=== PATIENT | male | born 1960 | race Caucasian/White ===

== ENCOUNTER 2017-02-04 08:24 | Emergency (ER) | payer MEDICARE, MEDICAID ==
[~2017-02-04] VITALS: Ht 170.2 cm; Wt 72.6 kg
[~2017-02-04 08:24] MED LIST: ACET325T9 PO; ASCO500T3 PO; CEFP200T PO; CLON0.5T3 PO; DIVA500T2 PO; DOCU-27 PO; ESCI10TA10 PO; IBUP-1027 PO; KETO15CR TP; LORA-434 PO; MAGN400O4 PO; MINE120C TP; MULT-245 PO; OXYB5TAB33 PO; POTA20LI PO; QUET50TA5 PO; RISP3TAB23 PO; TRAM50TA PO; [UNRECOGNIZED DRUG - OTHER] TP
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
[2017-02-04] MEDS ORDERED: ACETAMINOPHEN 325 MG TABLET. PO ONE (09:00)
[2017-02-04 11:22] VITALS: BP 130/82
== END 2017-02-04 11:27 | disposition home or self-care (01) ==
LOC: ER 08:24
DX: S09.90XA Unspecified injury of head, initial encounter (principal); F20.9 Schizophrenia, unspecified; K21.9 Gastro-esophageal reflux disease without esophagitis; F17.210 Nicotine dependence, cigarettes, uncomplicated; M19.90 Unspecified osteoarthritis, unspecified site; Z86.73 Personal history of transient ischemic attack (TIA), and cerebral infarction without residual deficits; Z98.2 Presence of cerebrospinal fluid drainage device; Y08.09XA Assault by strike by other specified type of sport equipment, initial encounter; Y93.89 Activity, other specified; Y99.8 Other external cause status; Y92.89 Other specified places as the place of occurrence of the external cause
CPT/HCPCS: 99284

== ENCOUNTER 2019-01-10 14:51 | Inpatient (IN) | payer MEDICARE, MEDICAID ==
[~2019-01-10] VITALS: Ht 170.2 cm; Wt 73.6 kg
[~2019-01-10 14:51] MED LIST changes: +AMOX1TAB11 PO; +CLON0.5T11 PO; -CLON0.5T3 PO; +DOCU-109 PO; -DOCU-27 PO; -ESCI10TA10 PO; +GABA-585 PO; -KETO15CR TP; +KETO15CR2 TP; +LACT1CAP19 PO; +LEXAPRO10 MG PO; -MAGN400O4 PO; +MAGN400O7 PO; +METF10007 PO; +OMEP40CA5 PO; -POTA20LI PO; +POTA20LI27 PO; +RISP1TAB43 PO; +VALP250S PO; +VALP250S4 FT
--- NOTE | 2019-01-10 15:07 | PHYS DOC ---
Past Medical History Past Medical History: Anxiety, Arthritis, CVA, GERD, Seizure, Schizophrenia, UTI, Other Additional Past Medical Histor: L SIDE HEMIPLEGIA,FALLS,candidal stomatitis, hydrocephalus Past Surgical History: Cholecystectomy, Other Additional Past Surgical Histo: PEG TUBE PLACEMENT, MUFFLER HAND shunt Alcohol Use: None Drug Use: None Adult General HPI HPI Patient is a 58 year old altered mental status. Patient has a decreased level of awareness at baseline however this is become worse over the past 10 days or so at the assisted care facility where he resides. He was recently diagnosed with urinary tract infection, was placed on Cipro and was initially improving however it his again gotten worse over the past several days. He was also noted to be hypokalemic and received IV fluids with potassium without any improvement in his mental status. History is limited from the patient due to his altered mental status. History was obtained from the paramedics and the assisted care facility where he resides[] Review of Systems Review of Systems Unable to obtain from patient due to altered mental status All other systems were reviewed and found to be within normal limits, except as documented in this note. Current Medications Current Medications Current Medications Medications (Trade) Dose Ordered Sig/Quinn Start Time Stop Time Status Last Admin Dose Admin Sodium Chloride 1,000 ml @ 1,000 mls/hr 1X ONCE 01/10/19 15:15 01/10/19 16:14 DC 01/10/19 15:36 1,000 MLS/HR Allergies Allergies Allergies Coded Allergies Type Severity Reaction Last Updated Verified egg Allergy Intermediate Diarrhea 09/27/18 Yes Physical Exam Physical Exam Constitutional: Well developed, well nourished, ill appearing. [] HENT: Normocephalic, atraumatic, bilateral external ears normal, oropharynx moist, no oral exudates, nose normal. [] Eyes: PERRLA, EOMI, conjunctiva normal, no discharge. [] Neck: Normal range of motion, no tenderness, supple, no stridor. [] Cardiovascular:Heart rate regular rhythm, no murmur [] Lungs & Thorax: Bilateral breath sounds clear to auscultation [] Abdomen: Bowel sounds normal, soft, no tenderness, no masses, no pulsatile masses. [] Skin: Warm, dry, no erythema, no rash. [] Back: No tenderness, no CVA tenderness. [] Extremities: No tenderness, no cyanosis, no clubbing, ROM intact, no edema. [] Neurologic: Alert, will follow commands, normal motor function, no focal deficits noted. [] Psychologic: Unable to assess. [] Current Patient Data Vital Signs Vital Signs Date Time Temp Pulse Resp B/P (MAP) Pulse Ox O2 Delivery O2 Flow Rate FiO2 01/10/19 17:00 68 16 99 01/10/19 14:51 99.6 118/76 (90) Nasal Cannula 2.0 99.6 Lab Values Laboratory Tests Test 01/10/19 15:04 01/10/19 15:45 White Blood Count 7.9 x10^3/uL (4.0-11.0) Red Blood Count 4.97 x10^6/uL (4.30-5.70) Hemoglobin 14.9 g/dL (13.0-17.5) Hematocrit 45.5 % (39.0-53.0) Mean Corpuscular Volume 92 fL (79-100) Mean Corpuscular Hemoglobin 30 pg (25-35) Mean Corpuscular Hemoglobin Concent 33 g/dL (31-37) Red Cell Distribution Width 14.9 % (11.5-14.5) H Platelet Count 206 x10^3/uL (140-400) Neutrophils (%) (Auto) 59 % (31-73) Lymphocytes (%) (Auto) 28 % (24-48) Monocytes (%) (Auto) 13 % (0-9) H Eosinophils (%) (Auto) 0 % (0-3) Basophils (%) (Auto) 0 % (0-3) Neutrophils # (Auto) 4.7 x10^3uL (1.8-7.7) Lymphocytes # (Auto) 2.2 x10^3/uL (1.0-4.8) Monocytes # (Auto) 1.0 x10^3/uL (0.0-1.1) Eosinophils # (Auto) 0.0 x10^3/uL (0.0-0.7) Basophils # (Auto) 0.0 x10^3/uL (0.0-0.2) Prothrombin Time 16.9 SEC (11.7-14.0) H Prothrombin Time INR 1.4 (0.8-1.1) H Urine Collection Type Unknown Urine Color Yellow Urine Clarity Clear Urine pH 8.0 Urine Specific [place] >=1.030 Urine Protein 30 mg/dL (NEG-TRACE) Urine Glucose (UA) Negative mg/dL (NEG) Urine Ketones (Stick) 15 mg/dL (NEG) Urine Blood Negative (NEG) Urine Nitrite Negative (NEG) Urine Bilirubin Negative (NEG) Urine Urobilinogen Dipstick 1.0 mg/dL (0.2 mg/dL) Urine Leukocyte Esterase Negative (NEG) Urine RBC Occ /HPF (0-2) Urine WBC 0 /HPF (0-4) Urine Squamous Epithelial Cells Few /LPF Urine Bacteria 0 /HPF (0-FEW) Urine Mucus Marked /LPF Sodium Level 140 mmol/L (136-145) Potassium Level 5.2 mmol/L (3.5-5.1) H Chloride Level 104 mmol/L (98-107) Carbon Dioxide Level 27 mmol/L (21-32) Anion Gap 9 (6-14) Blood Urea Nitrogen 22 mg/dL (8-26) Creatinine 0.5 mg/dL (0.7-1.3) L Estimated GFR (Cockcroft-Gault) 172.0 BUN/Creatinine Ratio 44 (6-20) H Glucose Level 116 mg/dL (70-99) H Calcium Level 9.1 mg/dL (8.5-10.1) Magnesium Level 1.7 mg/dL (1.8-2.4) L Total Bilirubin 0.3 mg/dL (0.2-1.0) Aspartate Amino Transferase (AST) 19 U/L (15-37) Alanine Aminotransferase (ALT) 11 U/L (16-63) L Alkaline Phosphatase 68 U/L (46-116) Troponin I Quantitative < 0.017 ng/mL (0.000-0.055) ID-Boc-A-Type Natriuretic Peptide 33 pg/mL (0-124) Total Protein 6.8 g/dL (6.4-8.2) Albumin 2.2 g/dL (3.4-5.0) L Albumin/Globulin Ratio 0.5 (1.0-1.7) L Thyroid Stimulating Hormone (TSH) 4.904 uIU/mL (0.358-3.74) H Ammonia 23 mcmol/L (11-34) Laboratory Tests 01/10/19 15:04 Laboratory Tests 01/10/19 15:04 EKG EKG EKG shows a sinus rhythm at 65 bpm, normal axis, QTC of 388 ms, no ST elevation , interpreted by me at 1805[] Radiology/Procedures Radiology/Procedures Examination: CT HEAD WO CONTRAST History: ams; pt's neck is frozen at an angle; best position I could get pt into Comparison/Correlation: 10/11/2015 CT head without contrast Findings: Axial images of the head were obtained without contrast. Shunt catheter tubing involving the right lateral ventricular body is present. Left sided shunt catheter tubing terminating at the left lateral ventricular body is also present. Mild hydrocephalus is present and this is greater than compared to the previous exam. No intracranial hemorrhage, then shift, or mass effect. Focal ectasia of the right lateral ventricle anteriorly is noted and somewhat more evident than on the prior exam. Opacification of the right maxillary sinus is noted with fluid level present. Impression: Mild right and left lateral hydrocephalus is present. This is mildly increased compared to the prior exam. No intracranial hemorrhage. Acute right maxillary sinusitis. Chest x-ray does not show any acute features[] Course & Med Decision Making Course & Med Decision Making Pertinent Labs and Imaging studies reviewed. (See chart for details) ED course: Patient arrived by EMS, was placed in bed, and tolerated exam well. [facility]. After the return of laboratory and imaging findings consultation was made with the hospitalist service for admission, further evaluation, and treatment. Medical decision making: There is no evidence of an acute stroke syndrome, no evidence of pneumonia on chest x-ray, no evidence of sepsis on exam or laboratory criteria. No evidence of hyperammonemia. No evidence of a urinary tract infection.[] Dragon Disclaimer Dragon Disclaimer This electronic medical record was generated, in whole or in part, using a voice recognition dictation system. Departure Departure Impression: Primary Impression: Altered mental status Disposition: 09 ADMITTED INPATIENT Admitting Physician: Other Condition: IMPROVED Referrals: PABLITO GONZALEZ (PCP) Problem Qualifiers Primary Impression: Altered mental status Altered mental status type: unspecified Qualified Codes: R41.82 - Altered mental status, unspecified ALLY SOUZA Jan 10, 2019 15:07
[2019-01-10] MEDS ORDERED: IV NORMAL SALINE 1000ML BAG 1,000 ML IV ONE (15:15)
[2019-01-10 15:17] LABS: BASO % 0 % (0-3); EOS % 0 % (0-3); HEMATOCRIT 45.5 % (39.0-53.0); HEMOGLOBIN 14.9 g/dL (13.0-17.5); LYMPH # 2.2 x10^3/uL (1.0-4.8); LYMPH % 28 % (24-48); MEAN CORPUSCULAR HEMOGLOBIN 30 pg (25-35); MEAN CORPUSCULAR HGB CONC 33 g/dL (31-37); MEAN CORPUSCULAR VOLUME 92 fL (79-100); MONO % 13 % (0-9); NEUT # 4.7 x10^3uL (1.8-7.7); NEUT % 59 % (31-73); PLATELET COUNT 206 x10^3/uL (140-400); RED BLOOD COUNT 4.97 x10^6/uL (4.30-5.70); RED CELL DISTRIBUTION WIDTH 14.9 % (11.5-14.5); WHITE BLOOD COUNT 7.9 x10^3/uL (4.0-11.0)
[2019-01-10 15:25] LABS: BILIRUBIN,URINE NEGATIVE (NEG); CLARITY,URINE CLEAR; COLOR,URINE YELLOW; NITRITE,URINE NEGATIVE (NEG); PROTEIN,URINE 30 mg/dL (NEG-TRACE)
[2019-01-10 15:27] LABS: PROTHROMBIN TIME PATIENT 16.9 SEC (11.7-14.0)
[2019-01-10 15:34] LABS: BACTERIA,URINE 0 /HPF (0-FEW); CALCIUM 9.1 mg/dL (8.5-10.1); CREATININE 0.5 mg/dL (0.7-1.3); POTASSIUM 5.2 mmol/L (3.5-5.1); RBC,URINE OCC /HPF (0-2); SQUAMOUS EPITHELIAL CELL,UR FEW /LPF; WBC,URINE 0 /HPF (0-4)
[2019-01-10 15:39] LABS: ALBUMIN 2.2 g/dL (3.4-5.0); ALBUMIN/GLOBULIN RATIO 0.5 (1.0-1.7); MAGNESIUM 1.7 mg/dL (1.8-2.4); TOTAL BILIRUBIN 0.3 mg/dL (0.2-1.0); TOTAL PROTEIN 6.8 g/dL (6.4-8.2)
--- NOTE | 2019-01-10 15:57 | RAD ---
Examination: CT HEAD WO CONTRAST History: ams; pt's neck is frozen at an angle; best position I could get pt into Comparison/Correlation: 10/11/2015 CT head without contrast Findings: Axial images of the head were obtained without contrast. Shunt catheter tubing involving the right lateral ventricular body is present. Left sided shunt catheter tubing terminating at the left lateral ventricular body is also present. Mild hydrocephalus is present and this is greater than compared to the previous exam. No intracranial hemorrhage, then shift, or mass effect. Focal ectasia of the right lateral ventricle anteriorly is noted and somewhat more evident than on the prior exam. Opacification of the right maxillary sinus is noted with fluid level present. Impression: Mild right and left lateral hydrocephalus is present. This is mildly increased compared to the prior exam. No intracranial hemorrhage. Acute right maxillary sinusitis. PQRS Compliance Statement: One or more of the following individualized dose reduction techniques were utilized for this examination: 1. Automated exposure control 2. Adjustment of the mA and/or kV according to patient size 3. Use of iterative reconstruction technique Electronically signed by: Alvaro Stinson MD (01/10/2019 3:54 PM) [facility]
--- NOTE | 2019-01-10 17:44 | PDOC1 ---
History and Physical Date of Admission Date of Admission DATE: 01/10/19 TIME: 17:43 Identification/Chief Complaint Chief Complaint Altered mental status Source Source: Caregiver, Chart review, Patient History of Present Illness History of Present Illness Mr. Orozco is a 57 year old assisted [facility] patient w/ PMHx Smoker, DM, HTN, CVA, Seizure disorder, anxiety, schizophrenia, obstructive hydrocephalus s/p bilateral CERTIFIED PROSTHETIST shunt who arrived to ED with altered mental status per SNF. Patient has a decreased level of awareness and lower mental functioning at baseline however this is become worse over the past 10 days or so at the care facility where he resides. He was recently diagnosed with urinary tract infection, apparently, was placed on Cipro and was initially improving however he has gotten worse over the past several days. He was also noted to be hypokalemic and received IV fluids with potassium without any improvement in his mental status. In ED K was noted at 5.2. Mag was low at 1.7. Urine was bland. CT head shows bilateral lateral ventricles with increase in hydrocephalus. INR was 1.4. Otherwise labs WNL. Depakote level pending. He is mostly confused with me, unable to get any review of systems, but does have some RUQ tenderness with exam that he confirms with questioning. Past Medical History Cardiovascular: HTN Pulmonary: Other CENTRAL NERVOUS SYSTEM: CVA, Seizure, Other GI: Constipation Psych: Anxiety, Schizophrenia Renal/: Urinary Incontinence Endocrine: Diabetes Past Surgical History Past Surgical History: Other (CERTIFIED PROSTHETIST SHUNT) Family History Family History: Family History Unknown Social History Smoke: <1 pack per day ALCOHOL: none Drugs: None Current Problem List Problem List Problems Medical Problems: (1) Altered mental status Status: Acute Current Medications Current Medications Current Medications Sodium Chloride 1,000 ml @ 1,000 mls/hr 1X ONCE IV Last administered on at 15:36; Start 01/10/19 at 15:15; Stop 01/10/19 at 16:14; Status DC Active Scripts Active Culturelle (Lactobacillus Rhamnosus Gg) 1 Each Cap.sprink 1 Cap PO BID 30 Days Amox Tr-K Clv 875-125 Mg Tab (Amoxicillin/Potassium Clav) 1 Each Tablet 1 Tab PO BID 5 Days Tramadol Hcl 50 Mg Tablet 1 Tab PO PRN TID PRN 6 Days Clonazepam 0.5 Mg Tablet 1 Mg PO PRN BID PRN 7 Days Reported Risperdal (Risperidone) 1 Mg Tablet 5 Mg PO BID Valproic Acid (Valproic Acid (As Sodium Salt)) 250 Mg/5 Ml Solution 15 Ml FT DAILY Depakene (Valproate Sodium) 250 Mg/5 Ml Solution 20 Ml PO QHS Tylenol (Acetaminophen) 325 Mg Tablet 1-2 Tab PO QID Omeprazole 40 Mg Capsule.dr 1 Cap PO DAILY Neurontin (Gabapentin) 100 Mg Capsule 100 Mg PO TID Metformin Hcl 1,000 Mg Tablet 1,000 Mg PO BIDWMEALS Multi Vitamin Daily (Multivitamin) 1 Each Tablet 1 Each PO DAILY Ascorbic Acid 500 Mg Tablet 500 Mg PO BID Milk Of Magnesia (Magnesium Hydroxide) 400 Mg/5 Ml Oral.susp 30 Ml PO PRN DAILY PRN Lexapro (Escitalopram Oxalate) 10 Mg Tablet 10 Mg PO DAILY Colace (Docusate Sodium) 100 Mg Capsule 1 Cap PO DAILY Ditropan Xl (Oxybutynin Chloride) 5 Mg Tab.er.24 1 Tab PO DAILY Allergies Allergies: Coded Allergies: egg (Verified Allergy, Intermediate, Diarrhea, 09/27/18) ROS Review of System Unable to obtain 11 point ROS due to patient confusion and altered mental status. He does endorse abdominal pain Physical Exam General: No acute distress HEENT: Atraumatic, PERRLA, EOMI, Mucous membr. moist/pink Lungs: Clear to auscultation, Normal air movement Heart: S1S2, RRR, no gallops, no murmurs Male Genitals Exam: normal genitalia Rectal Exam: not examined Extremities: No clubbing, No cyanosis, No edema, Normal pulses, No tenderness/ swelling Skin: No rashes, No breakdown, No significant lesion Neuro: Other (Moving right side, not much movement on left, not following commands) Vitals Vitals Vital Signs Date Time Temp Pulse Resp B/P (MAP) Pulse Ox O2 Delivery O2 Flow Rate FiO2 01/10/19 17:00 68 16 99 01/10/19 14:51 99.6 118/76 (90) Nasal Cannula 2.0 99.6 Labs Labs Laboratory Tests Test 01/10/19 15:04 01/10/19 15:45 White Blood Count 7.9 x10^3/uL (4.0-11.0) Red Blood Count 4.97 x10^6/uL (4.30-5.70) Hemoglobin 14.9 g/dL (13.0-17.5) Hematocrit 45.5 % (39.0-53.0) Mean Corpuscular Volume 92 fL (79-100) Mean Corpuscular Hemoglobin 30 pg (25-35) Mean Corpuscular Hemoglobin Concent 33 g/dL (31-37) Red Cell Distribution Width 14.9 % (11.5-14.5) Platelet Count 206 x10^3/uL (140-400) Neutrophils (%) (Auto) 59 % (31-73) Lymphocytes (%) (Auto) 28 % (24-48) Monocytes (%) (Auto) 13 % (0-9) Eosinophils (%) (Auto) 0 % (0-3) Basophils (%) (Auto) 0 % (0-3) Neutrophils # (Auto) 4.7 x10^3uL (1.8-7.7) Lymphocytes # (Auto) 2.2 x10^3/uL (1.0-4.8) Monocytes # (Auto) 1.0 x10^3/uL (0.0-1.1) Eosinophils # (Auto) 0.0 x10^3/uL (0.0-0.7) Basophils # (Auto) 0.0 x10^3/uL (0.0-0.2) Prothrombin Time 16.9 SEC (11.7-14.0) Prothromb Time International Ratio 1.4 (0.8-1.1) Urine Collection Type Unknown Urine Color Yellow Urine Clarity Clear Urine pH 8.0 Urine Specific [place] >=1.030 Urine Protein 30 mg/dL (NEG-TRACE) Urine Glucose (UA) Negative mg/dL (NEG) Urine Ketones (Stick) 15 mg/dL (NEG) Urine Blood Negative (NEG) Urine Nitrite Negative (NEG) Urine Bilirubin Negative (NEG) Urine Urobilinogen Dipstick 1.0 mg/dL (0.2 mg/dL) Urine Leukocyte Esterase Negative (NEG) Urine RBC Occ /HPF (0-2) Urine WBC 0 /HPF (0-4) Urine Squamous Epithelial Cells Few /LPF Urine Bacteria 0 /HPF (0-FEW) Urine Mucus Marked /LPF Sodium Level 140 mmol/L (136-145) Potassium Level 5.2 mmol/L (3.5-5.1) Chloride Level 104 mmol/L (98-107) Carbon Dioxide Level 27 mmol/L (21-32) Anion Gap 9 (6-14) Blood Urea Nitrogen 22 mg/dL (8-26) Creatinine 0.5 mg/dL (0.7-1.3) Estimated GFR (Cockcroft-Gault) 172.0 BUN/Creatinine Ratio 44 (6-20) Glucose Level 116 mg/dL (70-99) Calcium Level 9.1 mg/dL (8.5-10.1) Magnesium Level 1.7 mg/dL (1.8-2.4) Total Bilirubin 0.3 mg/dL (0.2-1.0) Aspartate Amino Transf (AST/SGOT) 19 U/L (15-37) Alanine Aminotransferase (ALT/SGPT) 11 U/L (16-63) Alkaline Phosphatase 68 U/L (46-116) Troponin I Quantitative < 0.017 ng/mL (0.000-0.055) HX-Ujb-E-Type Natriuretic Peptide 33 pg/mL (0-124) Total Protein 6.8 g/dL (6.4-8.2) Albumin 2.2 g/dL (3.4-5.0) Albumin/Globulin Ratio 0.5 (1.0-1.7) Thyroid Stimulating Hormone (TSH) 4.904 uIU/mL (0.358-3.74) Ammonia 23 mcmol/L (11-34) Laboratory Tests Test 01/10/19 15:04 01/10/19 15:45 White Blood Count 7.9 x10^3/uL (4.0-11.0) Red Blood Count 4.97 x10^6/uL (4.30-5.70) Hemoglobin 14.9 g/dL (13.0-17.5) Hematocrit 45.5 % (39.0-53.0) Mean Corpuscular Volume 92 fL (79-100) Mean Corpuscular Hemoglobin 30 pg (25-35) Mean Corpuscular Hemoglobin Concent 33 g/dL (31-37) Red Cell Distribution Width 14.9 % (11.5-14.5) Platelet Count 206 x10^3/uL (140-400) Neutrophils (%) (Auto) 59 % (31-73) Lymphocytes (%) (Auto) 28 % (24-48) Monocytes (%) (Auto) 13 % (0-9) Eosinophils (%) (Auto) 0 % (0-3) Basophils (%) (Auto) 0 % (0-3) Neutrophils # (Auto) 4.7 x10^3uL (1.8-7.7) Lymphocytes # (Auto) 2.2 x10^3/uL (1.0-4.8) Monocytes # (Auto) 1.0 x10^3/uL (0.0-1.1) Eosinophils # (Auto) 0.0 x10^3/uL (0.0-0.7) Basophils # (Auto) 0.0 x10^3/uL (0.0-0.2) Prothrombin Time 16.9 SEC (11.7-14.0) Prothromb Time International Ratio 1.4 (0.8-1.1) Urine Collection Type Unknown Urine Color Yellow Urine Clarity Clear Urine pH 8.0 Urine Specific [place] >=1.030 Urine Protein 30 mg/dL (NEG-TRACE) Urine Glucose (UA) Negative mg/dL (NEG) Urine Ketones (Stick) 15 mg/dL (NEG) Urine Blood Negative (NEG) Urine Nitrite Negative (NEG) Urine Bilirubin Negative (NEG) Urine Urobilinogen Dipstick 1.0 mg/dL (0.2 mg/dL) Urine Leukocyte Esterase Negative (NEG) Urine RBC Occ /HPF (0-2) Urine WBC 0 /HPF (0-4) Urine Squamous Epithelial Cells Few /LPF Urine Bacteria 0 /HPF (0-FEW) Urine Mucus Marked /LPF Sodium Level 140 mmol/L (136-145) Potassium Level 5.2 mmol/L (3.5-5.1) Chloride Level 104 mmol/L (98-107) Carbon Dioxide Level 27 mmol/L (21-32) Anion Gap 9 (6-14) Blood Urea Nitrogen 22 mg/dL (8-26) Creatinine 0.5 mg/dL (0.7-1.3) Estimated GFR (Cockcroft-Gault) 172.0 BUN/Creatinine Ratio 44 (6-20) Glucose Level 116 mg/dL (70-99) Calcium Level 9.1 mg/dL (8.5-10.1) Magnesium Level 1.7 mg/dL (1.8-2.4) Total Bilirubin 0.3 mg/dL (0.2-1.0) Aspartate Amino Transf (AST/SGOT) 19 U/L (15-37) Alanine Aminotransferase (ALT/SGPT) 11 U/L (16-63) Alkaline Phosphatase 68 U/L (46-116) Troponin I Quantitative < 0.017 ng/mL (0.000-0.055) LK-Nkf-J-Type Natriuretic Peptide 33 pg/mL (0-124) Total Protein 6.8 g/dL (6.4-8.2) Albumin 2.2 g/dL (3.4-5.0) Albumin/Globulin Ratio 0.5 (1.0-1.7) Thyroid Stimulating Hormone (TSH) 4.904 uIU/mL (0.358-3.74) Ammonia 23 mcmol/L (11-34) Images Images CT Head - Mild right and left lateral hydrocephalus is present. This is mildly increased compared to the prior exam. No intracranial hemorrhage. Bilateral shunts in place VTE Prophylaxis Ordered VTE Prophylaxis Devices: Yes VTE Pharmacological Prophylaxi: Yes Assessment/Plan Assessment/Plan A/P: Acute encephalopathy - likely multifactorial, could be post-ictal vs depakote, vs CERTIFIED PROSTHETIST shunt, will order shunt imaging series, may ask neuro to see if nuc med shunt study is appropriate given worsening hydrocephalus on CT head. Hydrocephalus status post CERTIFIED PROSTHETIST shunt - worsening hydrocephalus by CT head read. Will consult neuro, order shunt KUB H/o indwelling PEG which was taken down years ago as per his personal history. Abdominal pain - found on limited ROS, will get RUQ US as he also has elevated INR, repeat LFTs in AM. May need CERTIFIED PROSTHETIST shunt assessed further given his altered state and abdominal pain Smoker - will offer nicotine patch DM - low sliding scale HTN - cont meds Chronic cough-no new productive sputum, no fevers in SNU History of CVA with left hemiplegia - stable Possible cerebral palsy? History of recent PEG taken down years ago Schizoaffective disorder - on depakote, check level History of decubitus ulcer - wound care to see Seizure, last seizure as per his account was this month, twitching of his neck- on seizure medications Mild hyperkalemia 5.2 - monitor Hypomagnesemia - will replace FEN - NPO, await bedside swallow, can advance as tolerated, confirm diet orders from SNF PPX - heparin Full code Inpatient for worsening mental status, at least 2 midnights to ascertain etiology ABIOLA FONSECA MD Jan 10, 2019 17:44
[2019-01-10] MEDS ORDERED: ONDANSETRON PF 4 MG/2 ML VIAL. IV PRN ×2 (17:45→21:00)
[2019-01-10 18:48] VITALS: BP 121/67
[2019-01-10] MEDS: IV NORMAL SALINE 1000ML BAG 1,000 ML IV SCH (18:48)
--- NOTE | 2019-01-10 19:00 | NUR ---
The patient, RAIN BENEDICT, 58 y/o, M admitted by ABIOLA FONSECA MD, was given written information regarding hospital policies, unit procedures and contact persons. Patient came from a skilled nursing and did not bring anything with him.
[2019-01-10] MEDS ORDERED: DEXTROSE 50% 25 GM / 50ML DISP.SYRIN. IV PRN (20:30)
[2019-01-10] MEDS: INSULIN LISPRO 300 UNITS/3 ML INSULN.PEN. SQ SCH (21:00)
[2019-01-10] MEDS ORDERED: MAGNESIUM SULFATE 2GM 50 ML IV ONE (21:00)
[2019-01-10] MEDS: HEPARIN for SUB-Q USE 5,000 UNIT/ML VIAL. SQ SCH (22:06)
[2019-01-10 22:52] VITALS: BP 114/72
--- NOTE | 2019-01-10 23:36 | RAD ---
Indication:Altered mental status TECHNIQUE:Portable AP chest X-ray COMPARISON: 09/26/2018 FINDINGS: Heart is normal in size. Lungs are clear. No pneumothorax or pleural effusion. Visualized bony thorax is within normal limits. IMPRESSION: No acute pulmonary process. Electronically signed by: Willie Martinez DO (01/10/2019 11:33 PM) [id number]
[2019-01-11 03:00] VITALS: BP 106/63
[2019-01-11] MEDS ORDERED: CIPR250T30 PO (03:04)
[2019-01-11] MEDS ORDERED: DOCU240C13 PO (03:04)
[2019-01-11] MEDS ORDERED: KETO120S2 TP (03:04)
[2019-01-11] MEDS ORDERED: IBUP-1027 PO (03:04)
[2019-01-11] MEDS: IV NORMAL SALINE 1000ML BAG 1,000 ML IV SCH ×4 (04:01→19:52)
[2019-01-11 04:40] LABS: BASO % 0 % (0-3); EOS # 0.1 x10^3/uL (0.0-0.7); EOS % 1 % (0-3); HEMATOCRIT 38.4 % (39.0-53.0); HEMOGLOBIN 12.6 g/dL (13.0-17.5); LYMPH # 2.4 x10^3/uL (1.0-4.8); LYMPH % 27 % (24-48); MEAN CORPUSCULAR HEMOGLOBIN 30 pg (25-35); MEAN CORPUSCULAR HGB CONC 33 g/dL (31-37); MEAN CORPUSCULAR VOLUME 91 fL (79-100); MONO # 1.4 x10^3/uL (0.0-1.1); MONO % 16 % (0-9); NEUT # 5.2 x10^3uL (1.8-7.7); NEUT % 57 % (31-73); PLATELET COUNT 197 x10^3/uL (140-400); RED BLOOD COUNT 4.23 x10^6/uL (4.30-5.70); RED CELL DISTRIBUTION WIDTH 14.5 % (11.5-14.5); WHITE BLOOD COUNT 9.1 x10^3/uL (4.0-11.0)
[2019-01-11 04:55] LABS: PROTHROMBIN TIME PATIENT 20.5 SEC (11.7-14.0)
[2019-01-11 05:19] LABS: VAL ACID 40 mcg/mL (50-100)
[2019-01-11 05:44] LABS: ALBUMIN 1.8 g/dL (3.4-5.0); ALBUMIN/GLOBULIN RATIO 0.5 (1.0-1.7); CALCIUM 8.5 mg/dL (8.5-10.1); CREATININE 0.4 mg/dL (0.7-1.3); GFR 222.5; POTASSIUM 4.3 mmol/L (3.5-5.1); TOTAL BILIRUBIN 0.2 mg/dL (0.2-1.0); TOTAL PROTEIN 5.5 g/dL (6.4-8.2)
[2019-01-11] MEDS: HEPARIN for SUB-Q USE 5,000 UNIT/ML VIAL. SQ SCH ×3 (06:01→22:11)
--- NOTE | 2019-01-11 06:41 | RAD ---
Indication:RUQ PAIN TECHNIQUE: Grayscale, color Doppler and spectral waveform is of the abdomen obtained. COMPARISON:None FINDINGS:Visualized pancreas is within normal limits. IVC within normal limits. Liver measures 16 cm in longest dimension and is normal in size with diffuse increased echogenicity. Main portal vein is patent. Right kidney measures 12.3 cm in length without hydronephrosis. CBD measures 5 mm in diameter and is within normal limits. Status post cholecystectomy. IMPRESSION: Hepatic steatosis. Electronically signed by: Willie Martinez DO (01/11/2019 6:38 AM) [facility]
[2019-01-11 07:00] VITALS: BP 100/60
[2019-01-11] MEDS: INSULIN LISPRO 300 UNITS/3 ML INSULN.PEN. SQ SCH ×3 (07:47→17:14)
--- NOTE | 2019-01-11 07:58 | RAD ---
Supine abdomen. 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 Supine views were taken of the abdomen. There are clips from a cholecystectomy. An old study from October 2015 showed a shunt tube in the right upper quadrant. There is a catheter on the right side of the abdomen on the supine view of the lower abdomen, retained foreign body would be possible. CT could be of benefit. Patient's taken a poor inspiration. There is linear atelectasis in the left lung base. Colon is distended with gas. IMPRESSION: 1. Distention of the colon. 2. No bowel obstruction. 3. Tubing noted on the right side of the abdomen. Electronically signed by: Bret Pineda MD (01/11/2019 7:55 AM) [facility]
--- NOTE | 2019-01-11 08:42 | EKG ---
[facility] [address] [place] [address] Test Date: 2019-01-10 Test Time: 15:01:00 Pat Name: RAIN BENEDICT Department: Room: 530 1 Gender: M Cardiac Monitor: : 1960 Requested By: ALLY SOUZA Order Number: [id number] Reading MD: Suresh Good MD Measurements Intervals [place] Rate: 65 P: 50 AR: 138 QRS: 42 QRSD: 76 T: 64 QT: 372 QTc: 388 Interpretive Statements SINUS RHYTHM Electronically Signed On 01-20-2019 22:03:39 CDT by Suresh Good MD
[2019-01-11 11:00] VITALS: BP 143/74
--- NOTE | 2019-01-11 12:12 | PDOC ---
PROGRESS NOTES Chief Complaint Chief Complaint Acute encephalopathy - likely multifactorial, could be post-ictal vs depakote, vs INTAKE NURSE shunt, will order shunt imaging series, may ask neuro to see if nuc med shunt study is appropriate given worsening hydrocephalus on CT head. Hydrocephalus status post INTAKE NURSE shunt - worsening hydrocephalus by CT head read. Will consult neuro, order shunt KUB H/o indwelling PEG which was taken down years ago as per his personal history. Abdominal pain - found on limited ROS, will get RUQ US as he also has elevated INR, repeat LFTs in AM. May need INTAKE NURSE shunt assessed further given his altered state and abdominal pain Smoker -counseling done DM - low sliding scale HTN - cont meds Chronic cough-no new productive sputum, no fevers in SNU History of CVA with left hemiplegia - stable Possible cerebral palsy? History of recent PEG taken down years ago Schizoaffective disorder - on depakote, low level History of decubitus ulcer - wound care to see Seizure, last seizure as per his account was this month, twitching of his neck- on seizure medications Mild hyperkalemia resolved now 4.7- monitor Hypomagnesemia - will replace FEN - NPO, await bedside swallow, can advance as tolerated, confirm diet orders from SNF PPX - heparin Full code History of Present Illness History of Present Illness Patient responding to verbal cues but not really able to have a meaningful conversation with the patient. Seems to be in no acute distress, patient is not exhibiting decreased sensorium at the time my evaluation this seems to be about his baseline based on reports from admitting physician. Discussed with nursing staff awaiting for swallow evaluation Vitals Vitals Vital Signs Date Time Temp Pulse Resp B/P (MAP) Pulse Ox O2 Delivery O2 Flow Rate FiO2 01/11/19 11:00 98.4 59 17 143/74 (97) 97 Nasal Cannula 2.0 98.4 Physical Exam Physical Exam General: No acute distress HEENT: Atraumatic, PERRLA, EOMI, Mucous membr. moist/pink Lungs: Clear to auscultation, Normal air movement Heart: S1S2, RRR, no gallops, no murmurs Male Genitals Exam: normal genitalia Rectal Exam: not examined Extremities: No clubbing, No cyanosis, No edema, Normal pulses, No tenderness/ swelling Skin: No rashes, No breakdown, No significant lesion Neuro: Other (Moving right side, not much movement on left, not following commands) General: No acute distress Lungs: Clear, Crackles, Other Extremities: No clubbing, No cyanosis, No edema, Normal pulses, No tenderness/ swelling Skin: No rashes, No breakdown, No significant lesion Labs LABS Laboratory Tests Test 01/10/19 15:04 01/10/19 15:45 01/10/19 20:55 01/11/19 03:30 White Blood Count 7.9 x10^3/uL (4.0-11.0) 9.1 x10^3/uL (4.0-11.0) Red Blood Count 4.97 x10^6/uL (4.30-5.70) 4.23 x10^6/uL (4.30-5.70) Hemoglobin 14.9 g/dL (13.0-17.5) 12.6 g/dL (13.0-17.5) Hematocrit 45.5 % (39.0-53.0) 38.4 % (39.0-53.0) Mean Corpuscular Volume 92 fL (79-100) 91 fL (79-100) Mean Corpuscular Hemoglobin 30 pg (25-35) 30 pg (25-35) Mean Corpuscular Hemoglobin Concent 33 g/dL (31-37) 33 g/dL (31-37) Red Cell Distribution Width 14.9 % (11.5-14.5) 14.5 % (11.5-14.5) Platelet Count 206 x10^3/uL (140-400) 197 x10^3/uL (140-400) Neutrophils (%) (Auto) 59 % (31-73) 57 % (31-73) Lymphocytes (%) (Auto) 28 % (24-48) 27 % (24-48) Monocytes (%) (Auto) 13 % (0-9) 16 % (0-9) Eosinophils (%) (Auto) 0 % (0-3) 1 % (0-3) Basophils (%) (Auto) 0 % (0-3) 0 % (0-3) Neutrophils # (Auto) 4.7 x10^3uL (1.8-7.7) 5.2 x10^3uL (1.8-7.7) Lymphocytes # (Auto) 2.2 x10^3/uL (1.0-4.8) 2.4 x10^3/uL (1.0-4.8) Monocytes # (Auto) 1.0 x10^3/uL (0.0-1.1) 1.4 x10^3/uL (0.0-1.1) Eosinophils # (Auto) 0.0 x10^3/uL (0.0-0.7) 0.1 x10^3/uL (0.0-0.7) Basophils # (Auto) 0.0 x10^3/uL (0.0-0.2) 0.0 x10^3/uL (0.0-0.2) Prothrombin Time 16.9 SEC (11.7-14.0) 20.5 SEC (11.7-14.0) Prothromb Time International Ratio 1.4 (0.8-1.1) 1.8 (0.8-1.1) Urine Collection Type Unknown Urine Color Yellow Urine Clarity Clear Urine pH 8.0 Urine Specific [place] >=1.030 Urine Protein 30 mg/dL (NEG-TRACE) Urine Glucose (UA) Negative mg/dL (NEG) Urine Ketones (Stick) 15 mg/dL (NEG) Urine Blood Negative (NEG) Urine Nitrite Negative (NEG) Urine Bilirubin Negative (NEG) Urine Urobilinogen Dipstick 1.0 mg/dL (0.2 mg/dL) Urine Leukocyte Esterase Negative (NEG) Urine RBC Occ /HPF (0-2) Urine WBC 0 /HPF (0-4) Urine Squamous Epithelial Cells Few /LPF Urine Bacteria 0 /HPF (0-FEW) Urine Mucus Marked /LPF Sodium Level 140 mmol/L (136-145) 144 mmol/L (136-145) Potassium Level 5.2 mmol/L (3.5-5.1) 4.3 mmol/L (3.5-5.1) Chloride Level 104 mmol/L (98-107) 108 mmol/L (98-107) Carbon Dioxide Level 27 mmol/L (21-32) 26 mmol/L (21-32) Anion Gap 9 (6-14) 10 (6-14) Blood Urea Nitrogen 22 mg/dL (8-26) 23 mg/dL (8-26) Creatinine 0.5 mg/dL (0.7-1.3) 0.4 mg/dL (0.7-1.3) Estimated GFR (Cockcroft-Gault) 172.0 222.5 BUN/Creatinine Ratio 44 (6-20) 58 (6-20) Glucose Level 116 mg/dL (70-99) 99 mg/dL (70-99) Calcium Level 9.1 mg/dL (8.5-10.1) 8.5 mg/dL (8.5-10.1) Magnesium Level 1.7 mg/dL (1.8-2.4) Total Bilirubin 0.3 mg/dL (0.2-1.0) 0.2 mg/dL (0.2-1.0) Aspartate Amino Transf (AST/SGOT) 19 U/L (15-37) 11 U/L (15-37) Alanine Aminotransferase (ALT/SGPT) 11 U/L (16-63) 10 U/L (16-63) Alkaline Phosphatase 68 U/L (46-116) 54 U/L (46-116) Troponin I Quantitative < 0.017 ng/mL (0.000-0.055) YH-Oxp-R-Type Natriuretic Peptide 33 pg/mL (0-124) Total Protein 6.8 g/dL (6.4-8.2) 5.5 g/dL (6.4-8.2) Albumin 2.2 g/dL (3.4-5.0) 1.8 g/dL (3.4-5.0) Albumin/Globulin Ratio 0.5 (1.0-1.7) 0.5 (1.0-1.7) Thyroid Stimulating Hormone (TSH) 4.904 uIU/mL (0.358-3.74) Ammonia 23 mcmol/L (11-34) Glucose (Fingerstick) 106 mg/dL (70-99) Valproic Acid (Depakene) Level 40 mcg/mL (50-100) Valproic Acid Last Dose Date Unknown Valproic Acid Last Dose Time Unknown Test 01/11/19 07:19 01/11/19 11:22 Glucose (Fingerstick) 101 mg/dL (70-99) 103 mg/dL (70-99) Review of Systems Review of Systems Unable to obtain Assessment and Plan Assessmemt and Plan Problems Medical Problems: (1) Altered mental status Status: Acute Comment Review of Relevant I have reviewed the following items sowmya (where applicable) has been applied. Labs Laboratory Tests Test 01/10/19 15:04 01/10/19 15:45 01/10/19 20:55 01/11/19 03:30 White Blood Count 7.9 x10^3/uL (4.0-11.0) 9.1 x10^3/uL (4.0-11.0) Red Blood Count 4.97 x10^6/uL (4.30-5.70) 4.23 x10^6/uL (4.30-5.70) Hemoglobin 14.9 g/dL (13.0-17.5) 12.6 g/dL (13.0-17.5) Hematocrit 45.5 % (39.0-53.0) 38.4 % (39.0-53.0) Mean Corpuscular Volume 92 fL (79-100) 91 fL (79-100) Mean Corpuscular Hemoglobin 30 pg (25-35) 30 pg (25-35) Mean Corpuscular Hemoglobin Concent 33 g/dL (31-37) 33 g/dL (31-37) Red Cell Distribution Width 14.9 % (11.5-14.5) 14.5 % (11.5-14.5) Platelet Count 206 x10^3/uL (140-400) 197 x10^3/uL (140-400) Neutrophils (%) (Auto) 59 % (31-73) 57 % (31-73) Lymphocytes (%) (Auto) 28 % (24-48) 27 % (24-48) Monocytes (%) (Auto) 13 % (0-9) 16 % (0-9) Eosinophils (%) (Auto) 0 % (0-3) 1 % (0-3) Basophils (%) (Auto) 0 % (0-3) 0 % (0-3) Neutrophils # (Auto) 4.7 x10^3uL (1.8-7.7) 5.2 x10^3uL (1.8-7.7) Lymphocytes # (Auto) 2.2 x10^3/uL (1.0-4.8) 2.4 x10^3/uL (1.0-4.8) Monocytes # (Auto) 1.0 x10^3/uL (0.0-1.1) 1.4 x10^3/uL (0.0-1.1) Eosinophils # (Auto) 0.0 x10^3/uL (0.0-0.7) 0.1 x10^3/uL (0.0-0.7) Basophils # (Auto) 0.0 x10^3/uL (0.0-0.2) 0.0 x10^3/uL (0.0-0.2) Prothrombin Time 16.9 SEC (11.7-14.0) 20.5 SEC (11.7-14.0) Prothromb Time International Ratio 1.4 (0.8-1.1) 1.8 (0.8-1.1) Urine Collection Type Unknown Urine Color Yellow Urine Clarity Clear Urine pH 8.0 Urine Specific [place] >=1.030 Urine Protein 30 mg/dL (NEG-TRACE) Urine Glucose (UA) Negative mg/dL (NEG) Urine Ketones (Stick) 15 mg/dL (NEG) Urine Blood Negative (NEG) Urine Nitrite Negative (NEG) Urine Bilirubin Negative (NEG) Urine Urobilinogen Dipstick 1.0 mg/dL (0.2 mg/dL) Urine Leukocyte Esterase Negative (NEG) Urine RBC Occ /HPF (0-2) Urine WBC 0 /HPF (0-4) Urine Squamous Epithelial Cells Few /LPF Urine Bacteria 0 /HPF (0-FEW) Urine Mucus Marked /LPF Sodium Level 140 mmol/L (136-145) 144 mmol/L (136-145) Potassium Level 5.2 mmol/L (3.5-5.1) 4.3 mmol/L (3.5-5.1) Chloride Level 104 mmol/L (98-107) 108 mmol/L (98-107) Carbon Dioxide Level 27 mmol/L (21-32) 26 mmol/L (21-32) Anion Gap 9 (6-14) 10 (6-14) Blood Urea Nitrogen 22 mg/dL (8-26) 23 mg/dL (8-26) Creatinine 0.5 mg/dL (0.7-1.3) 0.4 mg/dL (0.7-1.3) Estimated GFR (Cockcroft-Gault) 172.0 222.5 BUN/Creatinine Ratio 44 (6-20) 58 (6-20) Glucose Level 116 mg/dL (70-99) 99 mg/dL (70-99) Calcium Level 9.1 mg/dL (8.5-10.1) 8.5 mg/dL (8.5-10.1) Magnesium Level 1.7 mg/dL (1.8-2.4) Total Bilirubin 0.3 mg/dL (0.2-1.0) 0.2 mg/dL (0.2-1.0) Aspartate Amino Transf (AST/SGOT) 19 U/L (15-37) 11 U/L (15-37) Alanine Aminotransferase (ALT/SGPT) 11 U/L (16-63) 10 U/L (16-63) Alkaline Phosphatase 68 U/L (46-116) 54 U/L (46-116) Troponin I Quantitative < 0.017 ng/mL (0.000-0.055) NR-Bcg-J-Type Natriuretic Peptide 33 pg/mL (0-124) Total Protein 6.8 g/dL (6.4-8.2) 5.5 g/dL (6.4-8.2) Albumin 2.2 g/dL (3.4-5.0) 1.8 g/dL (3.4-5.0) Albumin/Globulin Ratio 0.5 (1.0-1.7) 0.5 (1.0-1.7) Thyroid Stimulating Hormone (TSH) 4.904 uIU/mL (0.358-3.74) Ammonia 23 mcmol/L (11-34) Glucose (Fingerstick) 106 mg/dL (70-99) Valproic Acid (Depakene) Level 40 mcg/mL (50-100) Valproic Acid Last Dose Date Unknown Valproic Acid Last Dose Time Unknown Test 01/11/19 07:19 01/11/19 11:22 Glucose (Fingerstick) 101 mg/dL (70-99) 103 mg/dL (70-99) Laboratory Tests Test 01/10/19 15:04 01/10/19 15:45 01/10/19 20:55 01/11/19 03:30 White Blood Count 7.9 x10^3/uL (4.0-11.0) 9.1 x10^3/uL (4.0-11.0) Red Blood Count 4.97 x10^6/uL (4.30-5.70) 4.23 x10^6/uL (4.30-5.70) Hemoglobin 14.9 g/dL (13.0-17.5) 12.6 g/dL (13.0-17.5) Hematocrit 45.5 % (39.0-53.0) 38.4 % (39.0-53.0) Mean Corpuscular Volume 92 fL (79-100) 91 fL (79-100) Mean Corpuscular Hemoglobin 30 pg (25-35) 30 pg (25-35) Mean Corpuscular Hemoglobin Concent 33 g/dL (31-37) 33 g/dL (31-37) Red Cell Distribution Width 14.9 % (11.5-14.5) 14.5 % (11.5-14.5) Platelet Count 206 x10^3/uL (140-400) 197 x10^3/uL (140-400) Neutrophils (%) (Auto) 59 % (31-73) 57 % (31-73) Lymphocytes (%) (Auto) 28 % (24-48) 27 % (24-48) Monocytes (%) (Auto) 13 % (0-9) 16 % (0-9) Eosinophils (%) (Auto) 0 % (0-3) 1 % (0-3) Basophils (%) (Auto) 0 % (0-3) 0 % (0-3) Neutrophils # (Auto) 4.7 x10^3uL (1.8-7.7) 5.2 x10^3uL (1.8-7.7) Lymphocytes # (Auto) 2.2 x10^3/uL (1.0-4.8) 2.4 x10^3/uL (1.0-4.8) Monocytes # (Auto) 1.0 x10^3/uL (0.0-1.1) 1.4 x10^3/uL (0.0-1.1) Eosinophils # (Auto) 0.0 x10^3/uL (0.0-0.7) 0.1 x10^3/uL (0.0-0.7) Basophils # (Auto) 0.0 x10^3/uL (0.0-0.2) 0.0 x10^3/uL (0.0-0.2) Prothrombin Time 16.9 SEC (11.7-14.0) 20.5 SEC (11.7-14.0) Prothromb Time International Ratio 1.4 (0.8-1.1) 1.8 (0.8-1.1) Urine Collection Type Unknown Urine Color Yellow Urine Clarity Clear Urine pH 8.0 Urine Specific [place] >=1.030 Urine Protein 30 mg/dL (NEG-TRACE) Urine Glucose (UA) Negative mg/dL (NEG) Urine Ketones (Stick) 15 mg/dL (NEG) Urine Blood Negative (NEG) Urine Nitrite Negative (NEG) Urine Bilirubin Negative (NEG) Urine Urobilinogen Dipstick 1.0 mg/dL (0.2 mg/dL) Urine Leukocyte Esterase Negative (NEG) Urine RBC Occ /HPF (0-2) Urine WBC 0 /HPF (0-4) Urine Squamous Epithelial Cells Few /LPF Urine Bacteria 0 /HPF (0-FEW) Urine Mucus Marked /LPF Sodium Level 140 mmol/L (136-145) 144 mmol/L (136-145) Potassium Level 5.2 mmol/L (3.5-5.1) 4.3 mmol/L (3.5-5.1) Chloride Level 104 mmol/L (98-107) 108 mmol/L (98-107) Carbon Dioxide Level 27 mmol/L (21-32) 26 mmol/L (21-32) Anion Gap 9 (6-14) 10 (6-14) Blood Urea Nitrogen 22 mg/dL (8-26) 23 mg/dL (8-26) Creatinine 0.5 mg/dL (0.7-1.3) 0.4 mg/dL (0.7-1.3) Estimated GFR (Cockcroft-Gault) 172.0 222.5 BUN/Creatinine Ratio 44 (6-20) 58 (6-20) Glucose Level 116 mg/dL (70-99) 99 mg/dL (70-99) Calcium Level 9.1 mg/dL (8.5-10.1) 8.5 mg/dL (8.5-10.1) Magnesium Level 1.7 mg/dL (1.8-2.4) Total Bilirubin 0.3 mg/dL (0.2-1.0) 0.2 mg/dL (0.2-1.0) Aspartate Amino Transf (AST/SGOT) 19 U/L (15-37) 11 U/L (15-37) Alanine Aminotransferase (ALT/SGPT) 11 U/L (16-63) 10 U/L (16-63) Alkaline Phosphatase 68 U/L (46-116) 54 U/L (46-116) Troponin I Quantitative < 0.017 ng/mL (0.000-0.055) DZ-Akk-W-Type Natriuretic Peptide 33 pg/mL (0-124) Total Protein 6.8 g/dL (6.4-8.2) 5.5 g/dL (6.4-8.2) Albumin 2.2 g/dL (3.4-5.0) 1.8 g/dL (3.4-5.0) Albumin/Globulin Ratio 0.5 (1.0-1.7) 0.5 (1.0-1.7) Thyroid Stimulating Hormone (TSH) 4.904 uIU/mL (0.358-3.74) Ammonia 23 mcmol/L (11-34) Glucose (Fingerstick) 106 mg/dL (70-99) Valproic Acid (Depakene) Level 40 mcg/mL (50-100) Valproic Acid Last Dose Date Unknown Valproic Acid Last Dose Time Unknown Test 01/11/19 07:19 01/11/19 11:22 Glucose (Fingerstick) 101 mg/dL (70-99) 103 mg/dL (70-99) Medications Current Medications Sodium Chloride 1,000 ml @ 1,000 mls/hr 1X ONCE IV Last administered on at 15:36; Start 01/10/19 at 15:15; Stop 01/10/19 at 16:14; Status DC Ondansetron HCl (Zofran) 4 mg PRN Q8HRS PRN IV NAUSEA/VOMITING; Start 01/10/19 at 17:45; Stop 01/11/19 at 08:26; Status DC Sodium Chloride 1,000 ml @ 125 mls/hr Q8H IV Last administered on 01/11/19at 11 :33; Start 01/10/19 at 17:44; Stop 01/11/19 at 17:43 Magnesium Sulfate 50 ml @ 25 mls/hr 1X ONCE IV Last administered on 01/10/19at 21:57; Start 01/10/19 at 21:00; Stop 01/10/19 at 22:59; Status DC Insulin Human Lispro (HumaLOG) 0-7 UNITS TIDWMEALS SQ ; Start 01/10/19 at 21:00 Dextrose (Dextrose 50%-Water Syringe) 12.5 gm PRN Q15MIN PRN IV SEE COMMENTS; Start 01/10/19 at 20:30 Ondansetron HCl (Zofran) 4 mg PRN Q6HRS PRN IV NAUSEA/VOMITING; Start 01/10/19 at 21:00 Heparin Sodium (Porcine) (Heparin Sodium) 5,000 unit Q8HRS SQ Last administered on 01/11/19at 06:01; Start 01/10/19 at 22:00 Active Scripts Active Culturelle (Lactobacillus Rhamnosus Gg) 1 Each Cap.sprink 1 Cap PO BID 30 Days Amox Tr-K Clv 875-125 Mg Tab (Amoxicillin/Potassium Clav) 1 Each Tablet 1 Tab PO BID 5 Days Tramadol Hcl 50 Mg Tablet 1 Tab PO PRN TID PRN 6 Days Clonazepam 0.5 Mg Tablet 1 Mg PO PRN BID PRN 7 Days Reported Cipro (Ciprofloxacin Hcl) 250 Mg Tablet 1 Tab PO BID Ketoconazole 120 Ml Shampoo 1 Vira TP TWICE WEEKLY Ibuprofen 400 Mg Tablet 400 Mg PO PRN Q6HRS PRN Docusate Calcium 240 Mg Capsule 240 Mg PO DAILY Risperdal (Risperidone) 1 Mg Tablet 5 Mg PO BID Valproic Acid (Valproic Acid (As Sodium Salt)) 250 Mg/5 Ml Solution 15 Ml FT DAILY Depakene (Valproate Sodium) 250 Mg/5 Ml Solution 20 Ml PO QHS Tylenol (Acetaminophen) 325 Mg Tablet 1-2 Tab PO QID Omeprazole 40 Mg Capsule. 1 Cap PO DAILY Neurontin (Gabapentin) 100 Mg Capsule 100 Mg PO TID Metformin Hcl 1,000 Mg Tablet 1,000 Mg PO BIDWMEALS Multi Vitamin Daily (Multivitamin) 1 Each Tablet 1 Each PO DAILY Ascorbic Acid 500 Mg Tablet 500 Mg PO BID Milk Of Magnesia (Magnesium Hydroxide) 400 Mg/5 Ml Oral.susp 30 Ml PO PRN DAILY PRN Lexapro (Escitalopram Oxalate) 10 Mg Tablet 10 Mg PO DAILY Ditropan Xl (Oxybutynin Chloride) 5 Mg Tab.er.24 1 Tab PO DAILY Vitals/I & O Vital Sign - Last 24 Hours 01/10/19 01/10/19 01/10/19 01/10/19 14:51 15:30 16:00 16:30 Temp 99.6 99.6 Pulse 64 68 68 66 Resp 18 14 15 14 B/P (MAP) 118/76 (90) Pulse Ox 94 99 99 99 O2 Delivery Nasal Cannula O2 Flow Rate 2.0 01/10/19 01/10/19 01/10/19 01/10/19 17:00 17:30 18:00 18:48 Temp 97.3 97.3 Pulse 68 68 58 54 Resp 16 15 16 20 B/P (MAP) 121/67 (85) Pulse Ox 99 99 99 99 O2 Delivery Nasal Cannula O2 Flow Rate 2.0 01/10/19 01/10/19 01/11/19 01/11/19 20:00 22:52 03:00 07:00 Temp 97.5 97.6 98.4 97.5 97.6 98.4 Pulse 48 53 92 Resp 18 18 17 B/P (MAP) 114/72 (86) 106/63 (77) 100/60 (73) Pulse Ox 100 98 98 O2 Delivery Nasal Cannula Nasal Cannula Nasal Cannula Nasal Cannula O2 Flow Rate 3.0 2.0 2.0 2.0 01/11/19 11:00 Temp 98.4 98.4 Pulse 59 Resp 17 B/P (MAP) 143/74 (97) Pulse Ox 97 O2 Delivery Nasal Cannula O2 Flow Rate 2.0 Intake and Output 01/10/19 01/10/19 01/11/19 14:59 22:59 06:59 Intake Total 1000 ml Balance 1000 ml KRISTINA GONZALEZ MD Jan 11, 2019 12:12
[2019-01-11 15:00] VITALS: BP 112/69
--- NOTE | 2019-01-11 15:34 | PDOC2 ---
NEUROLOGY CONSULT Date of Admission Date of Admission DATE: 01/11/19 TIME: 15:21 Reason for Consult Reason for Consult: Altered mental status Referring Physician Referring Physician: Dr. Naik Source Source: Chart review, Patient History of Present Illness History of Present Illness The patient is a 65-year-old right-handed male resident of 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 He is admitted with altered mental status. He was being treated for urinary tract infection. He is brighter today. No one has witnessed any seizures. He denies any recent history of stroke or head injury. When he was here in 2014, Dr. Gupta checked an EEG, showing no epileptic activity. I also note that the intermediate records say that his current medications are all for his psychiatric disease or neuropathy. 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), Periperal neuropathy, Other (obstructive hydrocephalus with ventriculoperitoneal shunt, dysphagia) GI: GERD Heme/Onc: B12 deficiency Psych: Anxiety, Other (schizoaffective disorder) Renal/: UTI Past Surgical History Past Surgical History: Other (PEG placement and removal, ventriculoperitoneal shunt) Family History Family History: Cancer Social History Social History Single, no alcohol or tobacco, intermediate resident Current Medications Current Medications Current Medications Sodium Chloride 1,000 ml @ 1,000 mls/hr 1X ONCE IV Last administered on at 15:36; Start 01/10/19 at 15:15; Stop 01/10/19 at 16:14; Status DC Ondansetron HCl (Zofran) 4 mg PRN Q8HRS PRN IV NAUSEA/VOMITING; Start 01/10/19 at 17:45; Stop 01/11/19 at 08:26; Status DC Sodium Chloride 1,000 ml @ 125 mls/hr Q8H IV Last administered on 01/11/19at 11 :33; Start 01/10/19 at 17:44; Stop 01/11/19 at 17:43 Magnesium Sulfate 50 ml @ 25 mls/hr 1X ONCE IV Last administered on 01/10/19at 21:57; Start 01/10/19 at 21:00; Stop 01/10/19 at 22:59; Status DC Insulin Human Lispro (HumaLOG) 0-7 UNITS TIDWMEALS SQ ; Start 01/10/19 at 21:00 Dextrose (Dextrose 50%-Water Syringe) 12.5 gm PRN Q15MIN PRN IV SEE COMMENTS; Start 01/10/19 at 20:30 Ondansetron HCl (Zofran) 4 mg PRN Q6HRS PRN IV NAUSEA/VOMITING; Start 01/10/19 at 21:00 Heparin Sodium (Porcine) (Heparin Sodium) 5,000 unit Q8HRS SQ Last administered on 01/11/19at 06:01; Start 01/10/19 at 22:00 Active Scripts Active Culturelle (Lactobacillus Rhamnosus Gg) 1 Each Cap.sprink 1 Cap PO BID 30 Days Amox Tr-K Clv 875-125 Mg Tab (Amoxicillin/Potassium Clav) 1 Each Tablet 1 Tab PO BID 5 Days Tramadol Hcl 50 Mg Tablet 1 Tab PO PRN TID PRN 6 Days Clonazepam 0.5 Mg Tablet 1 Mg PO PRN BID PRN 7 Days Reported Cipro (Ciprofloxacin Hcl) 250 Mg Tablet 1 Tab PO BID Ketoconazole 120 Ml Shampoo 1 Vira TP TWICE WEEKLY Ibuprofen 400 Mg Tablet 400 Mg PO PRN Q6HRS PRN Docusate Calcium 240 Mg Capsule 240 Mg PO DAILY Risperdal (Risperidone) 1 Mg Tablet 5 Mg PO BID Valproic Acid (Valproic Acid (As Sodium Salt)) 250 Mg/5 Ml Solution 15 Ml FT DAILY Depakene (Valproate Sodium) 250 Mg/5 Ml Solution 20 Ml PO QHS Tylenol (Acetaminophen) 325 Mg Tablet 1-2 Tab PO QID Omeprazole 40 Mg Capsule.dr 1 Cap PO DAILY Neurontin (Gabapentin) 100 Mg Capsule 100 Mg PO TID Metformin Hcl 1,000 Mg Tablet 1,000 Mg PO BIDWMEALS Multi Vitamin Daily (Multivitamin) 1 Each Tablet 1 Each PO DAILY Ascorbic Acid 500 Mg Tablet 500 Mg PO BID Milk Of Magnesia (Magnesium Hydroxide) 400 Mg/5 Ml Oral.susp 30 Ml PO PRN DAILY PRN Lexapro (Escitalopram Oxalate) 10 Mg Tablet 10 Mg PO DAILY Ditropan Xl (Oxybutynin Chloride) 5 Mg Tab.er.24 1 Tab PO DAILY Allergies Allergies: Coded Allergies: egg (Verified Allergy, Intermediate, Diarrhea, 09/27/18) ROS Review of System Negative for fever, chills, weight loss, shortness of breath, chest pain, indigestion, hematochezia, melena, and dysuria. Full 14-point review of systems is negative. Physical Exam Physical Examination General: Well-developed, well-nourished white male in no acute distress HEENT: Normocephalic andatraumatic. Tympanic membranes clear.Fundoscopic exam unremarkable Neck: Supple without bruit, no meningismus Musculoskeletal: Stability:see neurologic. Gait exam:see neurologic. Tone:see neurologic. Strength:see neurologic. Neurological: Mental Status:orientation, memory, attention span/concentration, language, fund of knowledge: He has a flat affect, he does answer questions but does not know the date or location. He can tell me some details regarding his history. He names and repeats well and speech is fluent, but there is paucity of speech. Cranial Nerves:Pupils equal and reactive to light, extraocular movements are intact, visual [place] are full to confrontation. Facial sensation is normal. There is no facial asymmetry. Vestibulo-ocular reflex is intact. Palate elevates and tongue protrudes in midline. All other cranial related problems are negative except as mentioned before.Reflexes:2+ and symmetric with flexor plantar responses. Motor:3/5 on right, 2/5 on left with increased tone on the left. Coordination:Not cooperative. Gait:Not tested. Sensory:Normal pinprick , vibration, light touch, proprioception. Vitals VITALS Vital Signs Date Time Temp Pulse Resp B/P (MAP) Pulse Ox O2 Delivery O2 Flow Rate FiO2 01/11/19 11:00 98.4 59 17 143/74 (97) 97 Nasal Cannula 2.0 98.4 Labs Labs Laboratory Tests Test 01/10/19 15:04 01/10/19 15:45 01/10/19 20:55 01/11/19 03:30 White Blood Count 7.9 x10^3/uL (4.0-11.0) 9.1 x10^3/uL (4.0-11.0) Red Blood Count 4.97 x10^6/uL (4.30-5.70) 4.23 x10^6/uL (4.30-5.70) Hemoglobin 14.9 g/dL (13.0-17.5) 12.6 g/dL (13.0-17.5) Hematocrit 45.5 % (39.0-53.0) 38.4 % (39.0-53.0) Mean Corpuscular Volume 92 fL (79-100) 91 fL (79-100) Mean Corpuscular Hemoglobin 30 pg (25-35) 30 pg (25-35) Mean Corpuscular Hemoglobin Concent 33 g/dL (31-37) 33 g/dL (31-37) Red Cell Distribution Width 14.9 % (11.5-14.5) 14.5 % (11.5-14.5) Platelet Count 206 x10^3/uL (140-400) 197 x10^3/uL (140-400) Neutrophils (%) (Auto) 59 % (31-73) 57 % (31-73) Lymphocytes (%) (Auto) 28 % (24-48) 27 % (24-48) Monocytes (%) (Auto) 13 % (0-9) 16 % (0-9) Eosinophils (%) (Auto) 0 % (0-3) 1 % (0-3) Basophils (%) (Auto) 0 % (0-3) 0 % (0-3) Neutrophils # (Auto) 4.7 x10^3uL (1.8-7.7) 5.2 x10^3uL (1.8-7.7) Lymphocytes # (Auto) 2.2 x10^3/uL (1.0-4.8) 2.4 x10^3/uL (1.0-4.8) Monocytes # (Auto) 1.0 x10^3/uL (0.0-1.1) 1.4 x10^3/uL (0.0-1.1) Eosinophils # (Auto) 0.0 x10^3/uL (0.0-0.7) 0.1 x10^3/uL (0.0-0.7) Basophils # (Auto) 0.0 x10^3/uL (0.0-0.2) 0.0 x10^3/uL (0.0-0.2) Prothrombin Time 16.9 SEC (11.7-14.0) 20.5 SEC (11.7-14.0) Prothromb Time International Ratio 1.4 (0.8-1.1) 1.8 (0.8-1.1) Urine Collection Type Unknown Urine Color Yellow Urine Clarity Clear Urine pH 8.0 Urine Specific Fischer >=1.030 Urine Protein 30 mg/dL (NEG-TRACE) Urine Glucose (UA) Negative mg/dL (NEG) Urine Ketones (Stick) 15 mg/dL (NEG) Urine Blood Negative (NEG) Urine Nitrite Negative (NEG) Urine Bilirubin Negative (NEG) Urine Urobilinogen Dipstick 1.0 mg/dL (0.2 mg/dL) Urine Leukocyte Esterase Negative (NEG) Urine RBC Occ /HPF (0-2) Urine WBC 0 /HPF (0-4) Urine Squamous Epithelial Cells Few /LPF Urine Bacteria 0 /HPF (0-FEW) Urine Mucus Marked /LPF Sodium Level 140 mmol/L (136-145) 144 mmol/L (136-145) Potassium Level 5.2 mmol/L (3.5-5.1) 4.3 mmol/L (3.5-5.1) Chloride Level 104 mmol/L (98-107) 108 mmol/L (98-107) Carbon Dioxide Level 27 mmol/L (21-32) 26 mmol/L (21-32) Anion Gap 9 (6-14) 10 (6-14) Blood Urea Nitrogen 22 mg/dL (8-26) 23 mg/dL (8-26) Creatinine 0.5 mg/dL (0.7-1.3) 0.4 mg/dL (0.7-1.3) Estimated GFR (Cockcroft-Gault) 172.0 222.5 BUN/Creatinine Ratio 44 (6-20) 58 (6-20) Glucose Level 116 mg/dL (70-99) 99 mg/dL (70-99) Calcium Level 9.1 mg/dL (8.5-10.1) 8.5 mg/dL (8.5-10.1) Magnesium Level 1.7 mg/dL (1.8-2.4) Total Bilirubin 0.3 mg/dL (0.2-1.0) 0.2 mg/dL (0.2-1.0) Aspartate Amino Transf (AST/SGOT) 19 U/L (15-37) 11 U/L (15-37) Alanine Aminotransferase (ALT/SGPT) 11 U/L (16-63) 10 U/L (16-63) Alkaline Phosphatase 68 U/L (46-116) 54 U/L (46-116) Troponin I Quantitative < 0.017 ng/mL (0.000-0.055) IC-Sff-K-Type Natriuretic Peptide 33 pg/mL (0-124) Total Protein 6.8 g/dL (6.4-8.2) 5.5 g/dL (6.4-8.2) Albumin 2.2 g/dL (3.4-5.0) 1.8 g/dL (3.4-5.0) Albumin/Globulin Ratio 0.5 (1.0-1.7) 0.5 (1.0-1.7) Thyroid Stimulating Hormone (TSH) 4.904 uIU/mL (0.358-3.74) Ammonia 23 mcmol/L (11-34) Glucose (Fingerstick) 106 mg/dL (70-99) Valproic Acid (Depakene) Level 40 mcg/mL (50-100) Valproic Acid Last Dose Date Unknown Valproic Acid Last Dose Time Unknown Test 01/11/19 07:19 01/11/19 11:22 Glucose (Fingerstick) 101 mg/dL (70-99) 103 mg/dL (70-99) Laboratory Tests Test 01/10/19 15:45 01/10/19 20:55 01/11/19 03:30 01/11/19 07:19 Ammonia 23 mcmol/L (11-34) Glucose (Fingerstick) 106 mg/dL (70-99) 101 mg/dL (70-99) White Blood Count 9.1 x10^3/uL (4.0-11.0) Red Blood Count 4.23 x10^6/uL (4.30-5.70) Hemoglobin 12.6 g/dL (13.0-17.5) Hematocrit 38.4 % (39.0-53.0) Mean Corpuscular Volume 91 fL (79-100) Mean Corpuscular Hemoglobin 30 pg (25-35) Mean Corpuscular Hemoglobin Concent 33 g/dL (31-37) Red Cell Distribution Width 14.5 % (11.5-14.5) Platelet Count 197 x10^3/uL (140-400) Neutrophils (%) (Auto) 57 % (31-73) Lymphocytes (%) (Auto) 27 % (24-48) Monocytes (%) (Auto) 16 % (0-9) Eosinophils (%) (Auto) 1 % (0-3) Basophils (%) (Auto) 0 % (0-3) Neutrophils # (Auto) 5.2 x10^3uL (1.8-7.7) Lymphocytes # (Auto) 2.4 x10^3/uL (1.0-4.8) Monocytes # (Auto) 1.4 x10^3/uL (0.0-1.1) Eosinophils # (Auto) 0.1 x10^3/uL (0.0-0.7) Basophils # (Auto) 0.0 x10^3/uL (0.0-0.2) Prothrombin Time 20.5 SEC (11.7-14.0) Prothromb Time International Ratio 1.8 (0.8-1.1) Sodium Level 144 mmol/L (136-145) Potassium Level 4.3 mmol/L (3.5-5.1) Chloride Level 108 mmol/L (98-107) Carbon Dioxide Level 26 mmol/L (21-32) Anion Gap 10 (6-14) Blood Urea Nitrogen 23 mg/dL (8-26) Creatinine 0.4 mg/dL (0.7-1.3) Estimated GFR (Cockcroft-Gault) 222.5 BUN/Creatinine Ratio 58 (6-20) Glucose Level 99 mg/dL (70-99) Calcium Level 8.5 mg/dL (8.5-10.1) Total Bilirubin 0.2 mg/dL (0.2-1.0) Aspartate Amino Transf (AST/SGOT) 11 U/L (15-37) Alanine Aminotransferase (ALT/SGPT) 10 U/L (16-63) Alkaline Phosphatase 54 U/L (46-116) Total Protein 5.5 g/dL (6.4-8.2) Albumin 1.8 g/dL (3.4-5.0) Albumin/Globulin Ratio 0.5 (1.0-1.7) Valproic Acid (Depakene) Level 40 mcg/mL (50-100) Valproic Acid Last Dose Date Unknown Valproic Acid Last Dose Time Unknown Test 01/11/19 11:22 Glucose (Fingerstick) 103 mg/dL (70-99) Images Images CT HEAD WO CONTRAST History: ams; pt's neck is frozen at an angle; best position I could get pt into Comparison/Correlation: 10/11/2015 CT head without contrast Findings: Axial images of the head were obtained without contrast. Shunt catheter tubing involving the right lateral ventricular body is present. Left sided shunt catheter tubing terminating at the left lateral ventricular body is also present. Mild hydrocephalus is present and this is greater than compared to the previous exam. No intracranial hemorrhage, then shift, or mass effect. Focal ectasia of the right lateral ventricle anteriorly is noted and somewhat more evident than on the prior exam. Opacification of the right maxillary sinus is noted with fluid level present. Impression: Mild right and left lateral hydrocephalus is present. This is mildly increased compared to the prior exam. No intracranial hemorrhage. Acute right maxillary sinusitis. Assessment/Plan Assessment/Plan Impression: Metabolic encephalopathy in a patient with psychiatric disease and a cerebral palsy picture with hydrocephalus. Hydrocephalus is worse when compared to a CT head done 4 years ago, probably that this represents normal age-related atrophy. History of seizures, none currently. For me he denies seizures, for Dr. Alex, he has had some recent twitching of neck Diagnosed with neuropathy, hard to assess on examination now. Laboratory studies positive for low magnesium level Recommendations: I will have neurosurgery check for shunt on a nonemergent basis. EEG, routine Treat medical problems. Thank you for letting me help with the patient's care. YAIMA VALIENTE MD Jan 11, 2019 15:34
[2019-01-11 19:00] VITALS: BP 130/72
[2019-01-11 23:00] VITALS: BP 134/72
[2019-01-12 03:00] VITALS: BP 114/60
[2019-01-12] MEDS: HEPARIN for SUB-Q USE 5,000 UNIT/ML VIAL. SQ SCH ×3 (06:00→22:13)
[2019-01-12 07:00] VITALS: BP 114/57
[2019-01-12] MEDS: INSULIN LISPRO 300 UNITS/3 ML INSULN.PEN. SQ SCH ×3 (08:00→17:00)
[2019-01-12] MEDS: IV NORMAL SALINE 1000ML BAG 1,000 ML IV SCH ×2 (08:36→22:14)
--- NOTE | 2019-01-12 10:55 | RAD ---
Shunt series, 5 views, 01/12/2019: HISTORY: Check DECORATING AND ASSEMBLY SUPERVISOR shunt tube AP and lateral views of the skull and chest were obtained as well as an AP view of the abdomen. The recent CT study demonstrated tubing extending into the lateral ventricles bilaterally. The intracranial shunt tubing is not clearly visualized radiographically. On the right a shunt tube is identified in the neck extending into the chest just to the right of midline and then into the abdomen. Its entire course is not clearly defined due to its relatively low degree of opacity. Its tip is projected over the midabdomen just to the right of midline at the L4 level. Incidental note is made of mild linear atelectasis or scarring in the left lung base. There is a suggestion of an additional old linear catheter fragment projected over the right lower neck and superior mediastinum on the right. This was also identified on the CT chest exam from 12/07/2014. The abdominal gas pattern is unremarkable. IMPRESSION: The right-sided DECORATING AND ASSEMBLY SUPERVISOR shunt tube extends into the right midabdomen. Electronically signed by: Faisal Ramirez MD (01/12/2019 10:52 AM) [facility]
--- NOTE | 2019-01-12 10:55 | RAD ---
Shunt series, 5 views, 01/12/2019: HISTORY: Check DESKTOP PUBLISHER shunt tube AP and lateral views of the skull and chest were obtained as well as an AP view of the abdomen. The recent CT study demonstrated tubing extending into the lateral ventricles bilaterally. The intracranial shunt tubing is not clearly visualized radiographically. On the right a shunt tube is identified in the neck extending into the chest just to the right of midline and then into the abdomen. Its entire course is not clearly defined due to its relatively low degree of opacity. Its tip is projected over the midabdomen just to the right of midline at the L4 level. Incidental note is made of mild linear atelectasis or scarring in the left lung base. There is a suggestion of an additional old linear catheter fragment projected over the right lower neck and superior mediastinum on the right. This was also identified on the CT chest exam from 12/07/2014. The abdominal gas pattern is unremarkable. IMPRESSION: The right-sided DESKTOP PUBLISHER shunt tube extends into the right midabdomen. Electronically signed by: Faisal Ramirez MD (01/12/2019 10:52 AM) [facility]
--- NOTE | 2019-01-12 10:55 | RAD ---
Shunt series, 5 views, 01/12/2019: HISTORY: Check TREATMENT MANAGER shunt tube AP and lateral views of the skull and chest were obtained as well as an AP view of the abdomen. The recent CT study demonstrated tubing extending into the lateral ventricles bilaterally. The intracranial shunt tubing is not clearly visualized radiographically. On the right a shunt tube is identified in the neck extending into the chest just to the right of midline and then into the abdomen. Its entire course is not clearly defined due to its relatively low degree of opacity. Its tip is projected over the midabdomen just to the right of midline at the L4 level. Incidental note is made of mild linear atelectasis or scarring in the left lung base. There is a suggestion of an additional old linear catheter fragment projected over the right lower neck and superior mediastinum on the right. This was also identified on the CT chest exam from 12/07/2014. The abdominal gas pattern is unremarkable. IMPRESSION: The right-sided TREATMENT MANAGER shunt tube extends into the right midabdomen. Electronically signed by: Faisal Ramirez MD (01/12/2019 10:52 AM) [facility]
--- NOTE | 2019-01-12 14:24 | PDOC ---
PROGRESS NOTES Chief Complaint Chief Complaint Acute encephalopathy - likely multifactorial, could be post-ictal vs depakote, vs JUDICIAL ADMINISTRATIVE ASSISTANT shunt, will order shunt imaging series, may ask neuro to see if nuc med shunt study is appropriate given worsening hydrocephalus on CT head. Hydrocephalus status post JUDICIAL ADMINISTRATIVE ASSISTANT shunt - worsening hydrocephalus by CT head read. Patient to be seen by neurosurgery to evaluate his shunt. Will follow recommendations from senior sales consultant H/o indwelling PEG which was taken down years ago as per his personal history. Abdominal pain - found on limited ROS, will get RUQ US as he also has elevated INR, repeat LFTs in AM. May need JUDICIAL ADMINISTRATIVE ASSISTANT shunt assessed further given his altered state and abdominal pain Smoker -counseling done DM - low sliding scale HTN - cont meds Chronic cough-no new productive sputum, no fevers in SNU History of CVA with left hemiplegia - stable Possible cerebral palsy? History of recent PEG taken down years ago Schizoaffective disorder - on depakote, low level History of decubitus ulcer - wound care to see Seizure, last seizure as per his account was this month, twitching of his neck- on seizure medications Mild hyperkalemia resolved now 4.7- monitor Hypomagnesemia - will replace FEN - NPO, await bedside swallow, can advance as tolerated, confirm diet orders from SNF PPX - heparin Full code History of Present Illness History of Present Illness Patient responding to verbal cues but not really able to have a meaningful conversation with the patient. Seems to be in no acute distress, patient is not exhibiting decreased sensorium at the time my evaluation this seems to be about his baseline based on reports from admitting physician. Discussed with nursing staff awaiting for swallow evaluation Vitals Vitals Vital Signs Date Time Temp Pulse Resp B/P (MAP) Pulse Ox O2 Delivery O2 Flow Rate FiO2 01/12/19 08:00 Nasal Cannula 2.0 01/12/19 07:00 98.0 49 17 114/57 (76) 98 98.0 Physical Exam Physical Exam General: No acute distress HEENT: Atraumatic, PERRLA, EOMI, Mucous membr. moist/pink Lungs: Clear to auscultation, Normal air movement Heart: S1S2, RRR, no gallops, no murmurs Male Genitals Exam: normal genitalia Rectal Exam: not examined Extremities: No clubbing, No cyanosis, No edema, Normal pulses, No tenderness/ swelling Skin: No rashes, No breakdown, No significant lesion Neuro: Other (Moving right side, not much movement on left, not following commands) General: No acute distress Lungs: Clear, Crackles, Other Extremities: No clubbing, No cyanosis, No edema, Normal pulses, No tenderness/ swelling Skin: No rashes, No breakdown, No significant lesion Labs LABS Laboratory Tests Test 01/11/19 16:37 01/11/19 20:41 01/12/19 07:24 01/12/19 12:21 Glucose (Fingerstick) 89 mg/dL (70-99) 87 mg/dL (70-99) 80 mg/dL (70-99) 81 mg/dL (70-99) Assessment and Plan Assessmemt and Plan Problems Medical Problems: (1) Altered mental status Status: Acute Comment Review of Relevant I have reviewed the following items sowmya (where applicable) has been applied. Labs Laboratory Tests Test 01/10/19 15:04 01/10/19 15:45 01/10/19 20:55 01/11/19 00:11 White Blood Count 7.9 x10^3/uL (4.0-11.0) Red Blood Count 4.97 x10^6/uL (4.30-5.70) Hemoglobin 14.9 g/dL (13.0-17.5) Hematocrit 45.5 % (39.0-53.0) Mean Corpuscular Volume 92 fL (79-100) Mean Corpuscular Hemoglobin 30 pg (25-35) Mean Corpuscular Hemoglobin Concent 33 g/dL (31-37) Red Cell Distribution Width 14.9 % (11.5-14.5) Platelet Count 206 x10^3/uL (140-400) Neutrophils (%) (Auto) 59 % (31-73) Lymphocytes (%) (Auto) 28 % (24-48) Monocytes (%) (Auto) 13 % (0-9) Eosinophils (%) (Auto) 0 % (0-3) Basophils (%) (Auto) 0 % (0-3) Neutrophils # (Auto) 4.7 x10^3uL (1.8-7.7) Lymphocytes # (Auto) 2.2 x10^3/uL (1.0-4.8) Monocytes # (Auto) 1.0 x10^3/uL (0.0-1.1) Eosinophils # (Auto) 0.0 x10^3/uL (0.0-0.7) Basophils # (Auto) 0.0 x10^3/uL (0.0-0.2) Prothrombin Time 16.9 SEC (11.7-14.0) Prothromb Time International Ratio 1.4 (0.8-1.1) Urine Collection Type Unknown Urine Color Yellow Urine Clarity Clear Urine pH 8.0 Urine Specific [place] >=1.030 Urine Protein 30 mg/dL (NEG-TRACE) Urine Glucose (UA) Negative mg/dL (NEG) Urine Ketones (Stick) 15 mg/dL (NEG) Urine Blood Negative (NEG) Urine Nitrite Negative (NEG) Urine Bilirubin Negative (NEG) Urine Urobilinogen Dipstick 1.0 mg/dL (0.2 mg/dL) Urine Leukocyte Esterase Negative (NEG) Urine RBC Occ /HPF (0-2) Urine WBC 0 /HPF (0-4) Urine Squamous Epithelial Cells Few /LPF Urine Bacteria 0 /HPF (0-FEW) Urine Mucus Marked /LPF Sodium Level 140 mmol/L (136-145) Potassium Level 5.2 mmol/L (3.5-5.1) Chloride Level 104 mmol/L (98-107) Carbon Dioxide Level 27 mmol/L (21-32) Anion Gap 9 (6-14) Blood Urea Nitrogen 22 mg/dL (8-26) Creatinine 0.5 mg/dL (0.7-1.3) Estimated GFR (Cockcroft-Gault) 172.0 BUN/Creatinine Ratio 44 (6-20) Glucose Level 116 mg/dL (70-99) Calcium Level 9.1 mg/dL (8.5-10.1) Magnesium Level 1.7 mg/dL (1.8-2.4) Total Bilirubin 0.3 mg/dL (0.2-1.0) Aspartate Amino Transf (AST/SGOT) 19 U/L (15-37) Alanine Aminotransferase (ALT/SGPT) 11 U/L (16-63) Alkaline Phosphatase 68 U/L (46-116) Troponin I Quantitative < 0.017 ng/mL (0.000-0.055) DX-Jfa-V-Type Natriuretic Peptide 33 pg/mL (0-124) Total Protein 6.8 g/dL (6.4-8.2) Albumin 2.2 g/dL (3.4-5.0) Albumin/Globulin Ratio 0.5 (1.0-1.7) Thyroid Stimulating Hormone (TSH) 4.904 uIU/mL (0.358-3.74) Ammonia 23 mcmol/L (11-34) Glucose (Fingerstick) 106 mg/dL (70-99) Nasal Screen MRSA (PCR) Negative (Negative) Test 01/11/19 03:30 01/11/19 07:19 01/11/19 11:22 01/11/19 16:37 White Blood Count 9.1 x10^3/uL (4.0-11.0) Red Blood Count 4.23 x10^6/uL (4.30-5.70) Hemoglobin 12.6 g/dL (13.0-17.5) Hematocrit 38.4 % (39.0-53.0) Mean Corpuscular Volume 91 fL (79-100) Mean Corpuscular Hemoglobin 30 pg (25-35) Mean Corpuscular Hemoglobin Concent 33 g/dL (31-37) Red Cell Distribution Width 14.5 % (11.5-14.5) Platelet Count 197 x10^3/uL (140-400) Neutrophils (%) (Auto) 57 % (31-73) Lymphocytes (%) (Auto) 27 % (24-48) Monocytes (%) (Auto) 16 % (0-9) Eosinophils (%) (Auto) 1 % (0-3) Basophils (%) (Auto) 0 % (0-3) Neutrophils # (Auto) 5.2 x10^3uL (1.8-7.7) Lymphocytes # (Auto) 2.4 x10^3/uL (1.0-4.8) Monocytes # (Auto) 1.4 x10^3/uL (0.0-1.1) Eosinophils # (Auto) 0.1 x10^3/uL (0.0-0.7) Basophils # (Auto) 0.0 x10^3/uL (0.0-0.2) Prothrombin Time 20.5 SEC (11.7-14.0) Prothromb Time International Ratio 1.8 (0.8-1.1) Sodium Level 144 mmol/L (136-145) Potassium Level 4.3 mmol/L (3.5-5.1) Chloride Level 108 mmol/L (98-107) Carbon Dioxide Level 26 mmol/L (21-32) Anion Gap 10 (6-14) Blood Urea Nitrogen 23 mg/dL (8-26) Creatinine 0.4 mg/dL (0.7-1.3) Estimated GFR (Cockcroft-Gault) 222.5 BUN/Creatinine Ratio 58 (6-20) Glucose Level 99 mg/dL (70-99) Calcium Level 8.5 mg/dL (8.5-10.1) Total Bilirubin 0.2 mg/dL (0.2-1.0) Aspartate Amino Transf (AST/SGOT) 11 U/L (15-37) Alanine Aminotransferase (ALT/SGPT) 10 U/L (16-63) Alkaline Phosphatase 54 U/L (46-116) Total Protein 5.5 g/dL (6.4-8.2) Albumin 1.8 g/dL (3.4-5.0) Albumin/Globulin Ratio 0.5 (1.0-1.7) Valproic Acid (Depakene) Level 40 mcg/mL (50-100) Valproic Acid Last Dose Date Unknown Valproic Acid Last Dose Time Unknown Glucose (Fingerstick) 101 mg/dL (70-99) 103 mg/dL (70-99) 89 mg/dL (70-99) Test 01/11/19 20:41 01/12/19 07:24 01/12/19 12:21 Glucose (Fingerstick) 87 mg/dL (70-99) 80 mg/dL (70-99) 81 mg/dL (70-99) Laboratory Tests Test 01/11/19 16:37 01/11/19 20:41 01/12/19 07:24 01/12/19 12:21 Glucose (Fingerstick) 89 mg/dL (70-99) 87 mg/dL (70-99) 80 mg/dL (70-99) 81 mg/dL (70-99) Microbiology 01/10/19 Blood Culture - Preliminary, Resulted NO GROWTH AFTER 1 DAY Medications Current Medications Sodium Chloride 1,000 ml @ 1,000 mls/hr 1X ONCE IV Last administered on at 15:36; Start 01/10/19 at 15:15; Stop 01/10/19 at 16:14; Status DC Ondansetron HCl (Zofran) 4 mg PRN Q8HRS PRN IV NAUSEA/VOMITING; Start 01/10/19 at 17:45; Stop 01/11/19 at 08:26; Status DC Sodium Chloride 1,000 ml @ 125 mls/hr Q8H IV Last administered on 01/11/19at 11 :33; Start 01/10/19 at 17:44; Stop 01/11/19 at 17:43; Status DC Magnesium Sulfate 50 ml @ 25 mls/hr 1X ONCE IV Last administered on 01/10/19at 21:57; Start 01/10/19 at 21:00; Stop 01/10/19 at 22:59; Status DC Insulin Human Lispro (HumaLOG) 0-7 UNITS TIDWMEALS SQ ; Start 01/10/19 at 21:00 Dextrose (Dextrose 50%-Water Syringe) 12.5 gm PRN Q15MIN PRN IV SEE COMMENTS; Start 01/10/19 at 20:30 Ondansetron HCl (Zofran) 4 mg PRN Q6HRS PRN IV NAUSEA/VOMITING; Start 01/10/19 at 21:00 Heparin Sodium (Porcine) (Heparin Sodium) 5,000 unit Q8HRS SQ Last administered on 01/11/19at 22:11; Start 01/10/19 at 22:00 Sodium Chloride 1,000 ml @ 75 mls/hr [id number] IV Last administered on at 08:36; Start 01/11/19 at 18:00 Active Scripts Active Culturelle (Lactobacillus Rhamnosus Gg) 1 Each Cap.sprink 1 Cap PO BID 30 Days Amox Tr-K Clv 875-125 Mg Tab (Amoxicillin/Potassium Clav) 1 Each Tablet 1 Tab PO BID 5 Days Tramadol Hcl 50 Mg Tablet 1 Tab PO PRN TID PRN 6 Days Clonazepam 0.5 Mg Tablet 1 Mg PO PRN BID PRN 7 Days Reported Cipro (Ciprofloxacin Hcl) 250 Mg Tablet 1 Tab PO BID Ketoconazole 120 Ml Shampoo 1 Vira TP TWICE WEEKLY Ibuprofen 400 Mg Tablet 400 Mg PO PRN Q6HRS PRN Docusate Calcium 240 Mg Capsule 240 Mg PO DAILY Risperdal (Risperidone) 1 Mg Tablet 5 Mg PO BID Valproic Acid (Valproic Acid (As Sodium Salt)) 250 Mg/5 Ml Solution 15 Ml FT DAILY Depakene (Valproate Sodium) 250 Mg/5 Ml Solution 20 Ml PO QHS Tylenol (Acetaminophen) 325 Mg Tablet 1-2 Tab PO QID Omeprazole 40 Mg Capsule. 1 Cap PO DAILY Neurontin (Gabapentin) 100 Mg Capsule 100 Mg PO TID Metformin Hcl 1,000 Mg Tablet 1,000 Mg PO BIDWMEALS Multi Vitamin Daily (Multivitamin) 1 Each Tablet 1 Each PO DAILY Ascorbic Acid 500 Mg Tablet 500 Mg PO BID Milk Of Magnesia (Magnesium Hydroxide) 400 Mg/5 Ml Oral.susp 30 Ml PO PRN DAILY PRN Lexapro (Escitalopram Oxalate) 10 Mg Tablet 10 Mg PO DAILY Ditropan Xl (Oxybutynin Chloride) 5 Mg Tab.er.24 1 Tab PO DAILY Vitals/I & O Vital Sign - Last 24 Hours 01/11/19 01/11/19 01/11/19 01/11/19 15:00 19:00 20:30 23:00 Temp 98.1 98.0 98.3 98.1 98.0 98.3 Pulse 54 58 53 Resp 16 18 18 B/P (MAP) 112/69 (83) 130/72 (91) 134/72 (92) Pulse Ox 98 95 96 O2 Delivery Nasal Cannula Nasal Cannula Nasal Cannula Nasal Cannula O2 Flow Rate 2.0 2.0 2.0 2.0 01/12/19 01/12/19 01/12/19 03:00 07:00 08:00 Temp 97.6 98.0 97.6 98.0 Pulse 46 49 Resp 18 17 B/P (MAP) 114/60 (78) 114/57 (76) Pulse Ox 98 98 O2 Delivery Nasal Cannula Nasal Cannula Nasal Cannula O2 Flow Rate 2.0 2.0 2.0 KRISTINA GONZALEZ MD Jan 12, 2019 14:24
--- NOTE | 2019-01-12 14:55 | NUR ---
Wound Care Wound care consult for left heel wound. Pt has diabetic ulcer to left heel that result of unstageable with DTI pressure ulcer. Cleansed wound wtih Dakins solution, applied honey alginate and foam dressing, recommend to change every 3 days. Wound has foul odor. Pt has ST to R forearm, dressed with xeroform and foam, recommend to change every 3 days. No other wounds noted at this time. Ordered P500 bed and heel medix boots for pt. Will discuss POC with Dr Alex for possible xray. WC will continue to follow for possible changes.
[2019-01-12 15:00] VITALS: BP 114/56
--- NOTE | 2019-01-12 17:06 | PDOC ---
Provider Note Provider Note Patient seen and examined at 1430 reviewed imaging, increased ventriculomegaly patient awake, alert, conversant feel that shunt is working properly full consult to follow JOSHUA COLEY MD Jan 12, 2019 17:06
--- NOTE | 2019-01-12 18:09 | PDOC ---
PROGRESS NOTES Assessment Assessment Metabolic encephalopathy. Seizure. UTI DM Hydrocephalus s/p shunt placement. 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 Schizoaffective disorder. Dysphagia. Dementia features. RECOMMENDATIONS/PLAN: He was on Depakote 750 mg bid. Treat the underlying medical diseases. OT/PT. PAST MEDICAL HISTORY: See above. PAST SURGERY HISTORY: WORSHIP DIRECTOR shunt placement. ALLERGY: Unknown. MEDICATIONS: Refer to [facility] FAMILY HISTORY: Non contributory. SOCIAL HISTORY: Lives in penit[place]iary. Denies current smoking, drinking, and illicit drug use. REVIEW OF SYSTEMS: Constitutional: No malnutrition, weight loss, night sweats, cachexia Head: No traumatic brain or head injury. Skin: No edema, or rash. Ear: No infection, tinnitus. Eyes: No vision loss, color blindness Nose: No bleeding or purulent discharges. Neck: No injury, lymph note enlargement Cardiac: No FL, arrhythmia Pulmonary: No hemoptysis, dyspnea GI: No melena, hematochezia Urinary/genital: UTI. Endocrinologic: Diabetes Mellitus Skeletomuscular: Left hemiplegia. Neurological: see HP. Psychiatric: Denies drug use/abuse. Otherwise, not [id number] review of systems. PHYSICAL EXAMINATION: General appearance is in mild chronic distress. HEENT: Normocephalic and nontraumatic. Eyes, nose, ears, and throat are unremarkable. Neck is supple. No lymphadenopathy. No bruits are heard over the carotid artery. No crepitus. Cardiovascular: S1, S2, regular rate and rhythm. Pulmonary: Clear to auscultation bilaterally. Abdomen: Bowel sounds are positive. Abdomen is soft, nontender, and nondistended. Extremities: No rash, lesions, or edema. No restriction of range of motion NEUROLOGICAL EXAMINATION: Awake. Not oriented to time, place and person. PERRL. EOMI. CN: no focal findings. Muscle tone: increased in left side. Muscle strength: 3 left UE, 4+ right side. DTR: 1-2 Plantar reflex: Flexor response bilaterally Gait: not examined in bed. Sensory exam: no abnormal findings. No cerebellar signs elicited. Objective Objective Vital Signs Date Time Temp Pulse Resp B/P (MAP) Pulse Ox O2 Delivery O2 Flow Rate FiO2 01/12/19 15:00 98.8 57 20 114/56 (75) 99 Room Air 2.0 98.8 Intake and Output 01/12/19 07:00 # Voids 7 Vitals Signs Vitals VS - Last 72 Hours, by Label Date Time Temp Pulse Resp B/P (MAP) Pulse Ox O2 Delivery O2 Flow Rate FiO2 01/12/19 15:00 98.8 57 20 114/56 (75) 99 Room Air 2.0 98.8 01/12/19 08:00 Nasal Cannula 2.0 01/12/19 07:00 98.0 49 17 114/57 (76) 98 Nasal Cannula 2.0 98.0 01/12/19 03:00 97.6 46 18 114/60 (78) 98 Nasal Cannula 2.0 97.6 01/11/19 23:00 98.3 53 18 134/72 (92) 96 Nasal Cannula 2.0 98.3 01/11/19 20:30 Nasal Cannula 2.0 01/11/19 19:00 98.0 58 18 130/72 (91) 95 Nasal Cannula 2.0 98.0 01/11/19 15:00 98.1 54 16 112/69 (83) 98 Nasal Cannula 2.0 98.1 01/11/19 11:00 98.4 59 17 143/74 (97) 97 Nasal Cannula 2.0 98.4 01/11/19 08:00 Nasal Cannula 3.0 01/11/19 07:00 98.4 92 17 100/60 (73) 98 Nasal Cannula 2.0 98.4 Laboratory Laboratory Laboratory Tests Test 01/11/19 20:41 01/12/19 07:24 01/12/19 12:21 01/12/19 16:57 Glucose (Fingerstick) 87 mg/dL (70-99) 80 mg/dL (70-99) 81 mg/dL (70-99) 112 mg/dL (70-99) Microbiology 01/10/19 Blood Culture - Preliminary, Resulted NO GROWTH AFTER 2 DAYS Comment Review of Relevant I have reviewed the following items sowmya (where applicable) has been applied. ALE LAN MD Jan 12, 2019 18:09
[2019-01-12 19:00] VITALS: BP 126/68
[2019-01-12 23:00] VITALS: BP 127/57
[2019-01-13 03:01] VITALS: BP 121/51
[2019-01-13] MEDS: HEPARIN for SUB-Q USE 5,000 UNIT/ML VIAL. SQ SCH ×3 (05:49→22:06)
[2019-01-13 07:00] VITALS: BP 151/66
[2019-01-13] MEDS: INSULIN LISPRO 300 UNITS/3 ML INSULN.PEN. SQ SCH ×3 (08:00→16:56)
--- NOTE | 2019-01-13 10:51 | RAD ---
Left foot, 3 views, 01/13/2019: HISTORY: Posterior heel ulcer There is severe patchy bony demineralization. There is an old healed fracture of the distal first metatarsal. Mild scattered degenerative changes are present. No bone destruction is identified. Arterial calcifications are present. IMPRESSION: 1. Chronic findings as described above. 2. No acute bony abnormality is detected. Electronically signed by: Faisal Ramirez MD (01/13/2019 10:48 AM) [facility]
[2019-01-13 11:00] VITALS: BP 123/72
[2019-01-13] MEDS: IV NORMAL SALINE 1000ML BAG 1,000 ML IV SCH ×2 (12:04→22:07)
--- NOTE | 2019-01-13 13:00 | PDOC2 ---
CONSULT Date of Consult Date of Consult DATE: 01/13/19 TIME: 12:50 Reason for Consult Reason for Consult: Heel wounds Referring Physician Referring Physician: Dr. Naik Identification/Chief Complaint Chief Complaint Altered mental status Problems: (1) Unstageable pressure ulcer of right ankle (2) Unstageable pressure ulcer of left heel Source Source: Chart review History of Present Illness Reason for Visit: This is a 58-year-old patient admitted to the hospital for altered mental status. During the admission process, precedent ulcers were identified to the lower extremities. He is seen and examined for these now. History is primarily obtained from chart review. Patient is not capable as a historian. Unable to acquire records detailing onset or previous identification of studies ulcers. 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), Periperal neuropathy, Other (obstructive hydrocephalus with ventriculoperitoneal shunt, dysphagia) GI: GERD Heme/Onc: B12 deficiency Psych: Anxiety, Other (schizoaffective disorder) Renal/: UTI Endocrine: Diabetes Past Surgical History Past Surgical History: Other (PEG placement and removal, ventriculoperitoneal shunt) Family History Family History: Family History Unknown Social History <1 pack per day ALCOHOL: none Drugs: None Lives: Detention Domestic Violence: Neg Current Problem List Problem List Problems Medical Problems: (1) Altered mental status Status: Acute Current Medications Current Medications Current Medications Sodium Chloride 1,000 ml @ 1,000 mls/hr 1X ONCE IV Last administered on at 15:36; Start 01/10/19 at 15:15; Stop 01/10/19 at 16:14; Status DC Ondansetron HCl (Zofran) 4 mg PRN Q8HRS PRN IV NAUSEA/VOMITING; Start 01/10/19 at 17:45; Stop 01/11/19 at 08:26; Status DC Sodium Chloride 1,000 ml @ 125 mls/hr Q8H IV Last administered on 01/11/19at 11 :33; Start 01/10/19 at 17:44; Stop 01/11/19 at 17:43; Status DC Magnesium Sulfate 50 ml @ 25 mls/hr 1X ONCE IV Last administered on 01/10/19at 21:57; Start 01/10/19 at 21:00; Stop 01/10/19 at 22:59; Status DC Insulin Human Lispro (HumaLOG) 0-7 UNITS TIDWMEALS SQ Last administered on 01/13at 12:07; Start 01/10/19 at 21:00 Dextrose (Dextrose 50%-Water Syringe) 12.5 gm PRN Q15MIN PRN IV SEE COMMENTS; Start 01/10/19 at 20:30 Ondansetron HCl (Zofran) 4 mg PRN Q6HRS PRN IV NAUSEA/VOMITING; Start 01/10/19 at 21:00 Heparin Sodium (Porcine) (Heparin Sodium) 5,000 unit Q8HRS SQ Last administered on 01/13/19at 05:49; Start 01/10/19 at 22:00 Sodium Chloride 1,000 ml @ 75 mls/hr [id number] IV Last administered on at 12:04; Start 01/11/19 at 18:00 Active Scripts Active Culturelle (Lactobacillus Rhamnosus Gg) 1 Each Cap.sprink 1 Cap PO BID 30 Days Amox Tr-K Clv 875-125 Mg Tab (Amoxicillin/Potassium Clav) 1 Each Tablet 1 Tab PO BID 5 Days Tramadol Hcl 50 Mg Tablet 1 Tab PO PRN TID PRN 6 Days Clonazepam 0.5 Mg Tablet 1 Mg PO PRN BID PRN 7 Days Reported Cipro (Ciprofloxacin Hcl) 250 Mg Tablet 1 Tab PO BID Ketoconazole 120 Ml Shampoo 1 Vira TP TWICE WEEKLY Ibuprofen 400 Mg Tablet 400 Mg PO PRN Q6HRS PRN Docusate Calcium 240 Mg Capsule 240 Mg PO DAILY Risperdal (Risperidone) 1 Mg Tablet 5 Mg PO BID Valproic Acid (Valproic Acid (As Sodium Salt)) 250 Mg/5 Ml Solution 15 Ml FT DAILY Depakene (Valproate Sodium) 250 Mg/5 Ml Solution 20 Ml PO QHS Tylenol (Acetaminophen) 325 Mg Tablet 1-2 Tab PO QID Omeprazole 40 Mg Capsule. 1 Cap PO DAILY Neurontin (Gabapentin) 100 Mg Capsule 100 Mg PO TID Metformin Hcl 1,000 Mg Tablet 1,000 Mg PO BIDWMEALS Multi Vitamin Daily (Multivitamin) 1 Each Tablet 1 Each PO DAILY Ascorbic Acid 500 Mg Tablet 500 Mg PO BID Milk Of Magnesia (Magnesium Hydroxide) 400 Mg/5 Ml Oral.susp 30 Ml PO PRN DAILY PRN Lexapro (Escitalopram Oxalate) 10 Mg Tablet 10 Mg PO DAILY Ditropan Xl (Oxybutynin Chloride) 5 Mg Tab.er.24 1 Tab PO DAILY Allergies Allergies: Coded Allergies: egg (Verified Allergy, Intermediate, Diarrhea, 09/27/18) ROS Review of System Unable to be effectively accomplished. Patient is not capable his historian. Previous history of ulceration or wounding is not known. Physical Exam General: Other (patient is awake. He is minimally conversant with us at this time. He is generally cooperative. No evidence of appropriate orientation is identified.) HEENT: Atraumatic, PERRLA Lungs: Clear to auscultation, Normal air movement Heart: Regular rate Abdomen: Soft, No tenderness Extremities: No cyanosis, No edema, Other (quanta flow is 1.08 on the left and good pulses are identified bilaterally) Skin: Other (bilateral unstageable pressure ulcers or identified to the lower extremity. The right lateral ankle and left heel. Neither are felt to be with significant depth at this time.) Neuro: Other (nonambulatory. Flexion contractures present) Psych/Mental Status: Other (mental status with significant baseline impairment. I would refer you to the neurologic examination by specialist.) MUSCULOSKELETAL: Abnormal passive ROM of, Abn muscle strength of Vitals VITALS Vital Signs Date Time Temp Pulse Resp B/P (MAP) Pulse Ox O2 Delivery O2 Flow Rate FiO2 01/13/19 11:00 99.4 55 17 123/72 (89) 95 Room Air 99.4 01/12/19 15:00 2.0 Labs Labs Laboratory Tests Test 01/11/19 16:37 01/11/19 20:41 01/12/19 07:24 01/12/19 12:21 Glucose (Fingerstick) 89 mg/dL (70-99) 87 mg/dL (70-99) 80 mg/dL (70-99) 81 mg/dL (70-99) Test 01/12/19 16:57 01/12/19 20:44 01/13/19 07:39 01/13/19 11:51 Glucose (Fingerstick) 112 mg/dL (70-99) 126 mg/dL (70-99) 116 mg/dL (70-99) 192 mg/dL (70-99) Laboratory Tests Test 01/12/19 16:57 01/12/19 20:44 01/13/19 07:39 01/13/19 11:51 Glucose (Fingerstick) 112 mg/dL (70-99) 126 mg/dL (70-99) 116 mg/dL (70-99) 192 mg/dL (70-99) Assessment/Plan Assessment/Plan Unstageable pressure ulcers identified to the right lateral ankle and the left heel. Vascular status appears adequate for healing. Recommendations are made both for dressing application and offloading. See orders. Appropriate trunk offloading mattress noted at this time. Inpatient nursing wound care will follow along. MARIA R SOLORZANO DO Jan 13, 2019 13:00
--- NOTE | 2019-01-13 13:55 | EEG ---
DATE OF SERVICE: 01/12/2019 EEG NUMBER: [id number] OBJECTIVE: This is a 58-year-old male patient with history of seizure and status post shunt placement. EEG was requested to evaluate seizure activity. METHODS: Twenty electrodes were applied according to the international 10-20 electrode placement system. EKG monitoring, hyperventilation, intermittent photic stimulation, monopolar and bipolar montages are routinely utilized. The record was obtained on a digital system with video monitoring. FINDINGS: 1. Background: The patient was recorded in the awake, drowsy, and sleep states. The overall background amplitude is 10-20 microvolts. A posterior dominant rhythm of 8 Hz is observed with superimposed slowing in the theta and delta frequencies. 2. Abnormalities: No specific epileptiform discharge or electrographic seizure is seen. The superimposed slowing in the theta and delta frequencies is more than 50% on recording. 3. Activation: Hyperventilation was performed with good efforts and normal response. Intermittent photic stimulation was performed with photic driving. No specific epileptiform discharge or electrographic seizure induced by hyperventilation or intermittent photic stimulation. IMPRESSION: This EEG is an abnormal study for the awake, drowsy, and sleep states. There is superimposed slowing in the theta and delta frequencies. No focal, lateralizing, specific epileptiform discharge or electrographic seizure is seen. This pattern of EEG may suggest encephalopathy. ALE LAN MD DR: ENZO/soha JOB#: [id number] / [id number] JOSEPH
[2019-01-13 15:00] VITALS: BP 125/72
--- NOTE | 2019-01-13 15:25 | NUR ---
Wound Care Wound care follow up with Dr Reid. L heel wound assessed by Dr Reid. Odor is now gone, eschar is still intact. Replaced Medihoney alginate dressing, recommend to continue dressing changes every 3 days. Quantiflo done, JOAQUIN Left 1.08. No other wounds noted at this time. will continue to follow for possible changes.
--- NOTE | 2019-01-13 15:38 | PDOC ---
PROGRESS NOTES Assessment Assessment Metabolic encephalopathy. Seizure. UTI DM Hydrocephalus s/p shunt placement. 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 Schizoaffective disorder. Dysphagia. Dementia features. RECOMMENDATIONS/PLAN: He was on Depakote 750 mg bid. Treat the underlying medical diseases. OT/PT. Objective: No seizures since here. PAST MEDICAL HISTORY: See above. PAST SURGERY HISTORY: HEAD OF SCIENCE shunt placement. ALLERGY: Unknown. MEDICATIONS: Refer to [facility] FAMILY HISTORY: Non contributory. SOCIAL HISTORY: [facility]. Denies current smoking, drinking, and illicit drug use. REVIEW OF SYSTEMS: Constitutional: No malnutrition, weight loss, night sweats, cachexia Head: No traumatic brain or head injury. Skin: No edema, or rash. Ear: No infection, tinnitus. Eyes: No vision loss, color blindness Nose: No bleeding or purulent discharges. Neck: No injury, lymph note enlargement Cardiac: No MT, arrhythmia Pulmonary: No hemoptysis, dyspnea GI: No melena, hematochezia Urinary/genital: UTI. Endocrinologic: Diabetes Mellitus Skeletomuscular: Left hemiplegia. Neurological: see HP. Psychiatric: Denies drug use/abuse. Otherwise, not [id number] review of systems. PHYSICAL EXAMINATION: General appearance is in mild chronic distress. HEENT: Normocephalic and nontraumatic. Eyes, nose, ears, and throat are unremarkable. Neck is supple. No lymphadenopathy. No bruits are heard over the carotid artery. No crepitus. Cardiovascular: S1, S2, regular rate and rhythm. Pulmonary: Clear to auscultation bilaterally. Abdomen: Bowel sounds are positive. Abdomen is soft, nontender, and nondistended. Extremities: No rash, lesions, or edema. No restriction of range of motion NEUROLOGICAL EXAMINATION: Awake. Partially oriented to time, place and person. PERRL. EOMI. CN: no focal findings. Muscle tone: increased in left side. Muscle strength: 3 left UE, 4+ right side. DTR: 1-2 Plantar reflex: Flexor response bilaterally Gait: not examined in bed. Sensory exam: no abnormal findings. No cerebellar signs elicited. Objective Objective Vital Signs Date Time Temp Pulse Resp B/P (MAP) Pulse Ox O2 Delivery O2 Flow Rate FiO2 01/13/19 11:00 99.4 55 17 123/72 (89) 95 Room Air 99.4 01/12/19 15:00 2.0 Intake and Output 01/13/19 06:59 Intake Total 280 ml Balance 280 ml Intake Oral 280 ml # Voids 8 Vitals Signs Vitals VS - Last 72 Hours, by Label Date Time Temp Pulse Resp B/P (MAP) Pulse Ox O2 Delivery O2 Flow Rate FiO2 01/13/19 11:00 99.4 55 17 123/72 (89) 95 Room Air 99.4 01/13/19 08:00 Room Air 01/13/19 07:00 98.8 48 17 151/66 (94) 98 Room Air 98.8 01/13/19 03:01 99.5 51 18 121/51 (74) 95 Room Air 99.5 01/12/19 23:00 99.4 50 17 127/57 (80) 95 Room Air 99.4 01/12/19 20:00 Room Air 01/12/19 19:00 99.6 59 18 126/68 (87) 96 Room Air 99.6 01/12/19 15:00 98.8 57 20 114/56 (75) 99 Room Air 2.0 98.8 01/12/19 08:00 Nasal Cannula 2.0 01/12/19 07:00 98.0 49 17 114/57 (76) 98 Nasal Cannula 2.0 98.0 Laboratory Laboratory Laboratory Tests Test 01/12/19 16:57 01/12/19 20:44 01/13/19 07:39 01/13/19 11:51 Glucose (Fingerstick) 112 mg/dL (70-99) 126 mg/dL (70-99) 116 mg/dL (70-99) 192 mg/dL (70-99) Microbiology 01/10/19 Blood Culture - Preliminary, Resulted NO GROWTH AFTER 3 DAYS Comment Review of Relevant I have reviewed the following items sowmya (where applicable) has been applied. ALE LAN MD Jan 13, 2019 15:38
--- NOTE | 2019-01-13 15:43 | CONS ---
DATE OF CONSULTATION: 01/12/2019. REASON FOR CONSULTATION: Ventriculoperitoneal shunt. 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 He does have a ventriculoperitoneal shunt and related to me that it was placed around the time of in [place]. He was admitted to the hospital with altered mental status. He was being treated for urinary tract infection. There is no recent history of seizure or stroke. There was no epileptiform activity on EEG done in 2015. PAST MEDICAL HISTORY: CARDIOVASCULAR: Peripheral vascular disease. PULMONARY: Pneumonia. CENTRAL NERVOUS SYSTEM: CVA as described above, ventriculoperitoneal shunt as described above. GASTROINTESTINAL: GERD. HEM/ONC: B12 deficiency. PSYCHIATRIC: Schizoaffective disorder. RENAL AND GENITOURINARY: UTI. PAST SURGICAL HISTORY: PEG placement and removal of ventriculoperitoneal shunt. SOCIAL HISTORY: He lives in [facility]. There is no alcohol or tobacco. He is single. MEDICATIONS: Reviewed on the MRAD. ALLERGIES: HE IS ALLERGIC TO EGG. REVIEW OF SYSTEMS: A 12-points was performed and was negative other than outlined above. PHYSICAL EXAMINATION: GENERAL APPEARANCE: Well-developed, well-nourished white male, in no distress. HEENT: Normocephalic, atraumatic. NECK: Supple. NEUROLOGIC: He answered questions appropriately. His speech was clear. He did not know the date or his location. Speech is fluent. Cranial nerves: Pupils are equal and reactive to light with normal extraocular motor function. Visual oviedo are full to confrontation. Facial sensation is normal. Facial motor examination was normal with no facial asymmetry. Palate elevates and tongue protrudes in the midline. Motor examination, 2/5 on the left, 3/5 on the right. Tone increased on the left. Reflexes 2+. Downgoing toes. Sensory was intact to pin. LABORATORY DATA: I reviewed a CT scan of the head and compared to a scan done in 2015. There appeared to be reservoirs associated with both of the shunt tubes. On the right side, the shunt appears to be connected to a distal shunt and peritoneal tubing which enters the abdomen. There is ventriculomegaly. There is also cortical atrophy which is prominent on the right side when comparing to 2014 and the 2018 scans. The ventricles have increased slightly in size; however, there is significantly more cortical loss on the right in the superior parietal region. The patient does have a ventriculoperitoneal shunt in place. His obtundation appears to have resolved as his metabolic problems have improved. I do not believe there is any issue with his ventriculoperitoneal shunt, which needs to be addressed. I appreciate you asking us to see him. JOSHUA COLEY MD DR: WOO/soha JOB#: [id number] / [id number] JOSEPH
--- NOTE | 2019-01-13 16:35 | SNU/HH DC ---
DISCHARGE ORDERS DISCHARGE INFORMATION: DISCHARGE DATE: Jan 13, 2019 FINAL DIAGNOSIS Problems Medical Problems: (1) Altered mental status Status: Acute CONDITION ON DISCHARGE: Stable CODE STATUS: Code Status: Full CUSTODIAL: SNF STAY <30 DAYS: Yes POST DISCHARGE ORDERS: ACTIVITY ORDERS: Activity as tolerated WEIGHT BEARING STATUS: As tolerated CHECKS AFTER DISCHARGE: CHECKS AFTER DISCHARGE: Check blood press - daily, Check blood sugar, ac/hs, Check your Temp as needed FOLLOW-UP: PHYSICIAN FOLLOW-UP: primary care ADDITIONAL FOLLOW-UP: wound care for heel ulcers TREATMENT/EQUIPMENT ORDERS: ADAPTIVE EQUIPMENT NEEDED: None, Raised toilet seat w/arms Physical Therapy For: Evalulation/Treatment Occupational Therapy For: Evaluation/Treatment DISCHARGE MEDICATIONS: Home Meds Active Scripts Lactobacillus Rhamnosus Gg (CULTURELLE) 1 Each Cap.sprink, 1 CAP PO BID for pneumonia for 30 Days, #60 CAP Prov:ABIOLA FONSECA MD 10/02/18 Tramadol Hcl (TRAMADOL HCL) 50 Mg Tablet, 1 TAB PO PRN TID PRN for PAIN for 6 Days, #18 TAB 0 Refills Prov:ABIOLA FONSECA MD 10/02/18 Clonazepam (CLONAZEPAM) 0.5 Mg Tablet, 1 MG PO PRN BID PRN for ANXIETY / AGITATION for 7 Days, #14 TAB Prov:ABIOLA FONSECA MD 10/02/18 Reported Medications Ketoconazole (KETOCONAZOLE) 120 Ml Shampoo, 1 EUSEBIO TP TWICE WEEKLY for dandruff, #120 ML 3 Refills 01/11/19 Ibuprofen (IBUPROFEN) 400 Mg Tablet, 400 MG PO PRN Q6HRS PRN for INFLAMMATION, TAB 01/11/19 Docusate Calcium (DOCUSATE CALCIUM) 240 Mg Capsule, 240 MG PO DAILY for constipation, CAP 01/11/19 Risperidone (RISPERDAL) 1 Mg Tablet, 5 MG PO BID for schizoeffective disorder, TAB 09/26/18 Valproic Acid (As Sodium Salt) (Valproic Acid) 250 Mg/5 Ml Solution, 15 ML FT DAILY for schizoeffective disorder, MISC 09/26/18 Valproate Sodium (DEPAKENE) 250 Mg/5 Ml Solution, 20 ML PO QHS for schizoeffective disorder, MISC 09/26/18 Acetaminophen (TYLENOL) 325 Mg Tablet, 1-2 TAB PO QID for fever or mild pain, # 60 TAB 2 Refills 09/26/18 Omeprazole (OMEPRAZOLE) 40 Mg Capsule.dr, 1 CAP PO DAILY for Esophageal reflux , #30 CAP 3 Refills 09/26/18 Gabapentin (NEURONTIN ) 100 Mg Capsule, 100 MG PO TID for neuropathy, CAP 0 Refills 09/26/18 Metformin Hcl (METFORMIN HCL) 1,000 Mg Tablet, 1000 MG PO BIDWMEALS for DM, TAB 09/26/18 Multivitamin (MULTI VITAMIN DAILY) 1 Each Tablet, 1 EACH PO DAILY 12/14/14 Ascorbic Acid (ASCORBIC ACID) 500 Mg Tablet, 500 MG PO BID 12/14/14 Magnesium Hydroxide (MILK OF MAGNESIA) 400 Mg/5 Ml Oral.susp, 30 ML PO PRN DAILY PRN for CONSTIPATION 12/08/14 Escitalopram Oxalate (LEXAPRO) 10 Mg Tablet, 10 MG PO DAILY for ANTI-DEPRESSANT , TAB 0 Refills 12/08/14 Oxybutynin Chloride (DITROPAN XL) 5 Mg Tab.er.24, 1 TAB PO DAILY, #30 TAB 5 Refills 12/08/14 Discontinued Reported Medications Ciprofloxacin Hcl (CIPRO) 250 Mg Tablet, 1 TAB PO BID for UTI, #10 TAB 01/11/19 Docusate Sodium (COLACE) 100 Mg Capsule, 1 CAP PO DAILY for CONSTIPATION, #30 CAP 12/08/14 Discontinued Scripts Amoxicillin/Potassium Clav (AMOX TR-K CLV 875-125 MG TAB) 1 Each Tablet, 1 TAB PO BID for Pneumonia for 5 Days, #10 TAB Prov:ABIOLA FONSECA MD 10/02/18 KRISTINA GONZALEZ MD Jan 13, 2019 16:35
--- NOTE | 2019-01-13 16:42 | NUR ---
SW arranged transportation via [facility]. enterprise resource planner to fax orders to [facility]. RN notified.
--- NOTE | 2019-01-13 17:27 | NUR ---
THIS ROOFER APPRENTICE NOTIFIED AT 1725 THAT FACILITY IS NO LONGER ABLE TO TAKE PATIENT FOR TONIGHT, WILL HAVE TO REARRANGE FOR TRANSPORT IN THE AM, WITH NEW DISCHARGE ORDERS.
[2019-01-13 19:00] VITALS: BP 131/73
--- NOTE | 2019-01-13 21:19 | PDOC3 ---
Discharge Summary Visit Information Date of Admission: Jan 10, 2019 Date of Discharge: Jan 13, 2019 Admitting Diagnosis Comment: Acute encephalopathy - likely multifactorial, could be post-ictal vs depakote, vs ELECTRICIAN SOUND shunt, will order shunt imaging series, may ask neuro to see if nuc med shunt study is appropriate given worsening hydrocephalus on CT head. Hydrocephalus status post ELECTRICIAN SOUND shunt - worsening hydrocephalus by CT head read. Will consult neuro, order shunt KUB H/o indwelling PEG which was taken down years ago as per his personal history. Abdominal pain - found on limited ROS, will get RUQ US as he also has elevated INR, repeat LFTs in AM. May need ELECTRICIAN SOUND shunt assessed further given his altered state and abdominal pain Smoker - will offer nicotine patch DM - low sliding scale HTN - cont meds Chronic cough-no new productive sputum, no fevers in SNU History of CVA with left hemiplegia - stable Possible cerebral palsy? History of recent PEG taken down years ago Schizoaffective disorder - on depakote, check level History of decubitus ulcer - wound care to see Seizure, last seizure as per his account was this month, twitching of his neck- on seizure medications Mild hyperkalemia 5.2 - monitor Hypomagnesemia - will replace Final Diagnosis Problems Medical Problems: (1) Altered mental status resolved Acute encephalopathy - likely multifactorial, ruled out post-ictal, depakote, and ELECTRICIAN SOUND shunt disorde. CT scan changes associated with normal aging changes Hydrocephalus status post ELECTRICIAN SOUND shunt - worsening hydrocephalus by CT head as above. Neurosurgical evalution greatly appreciated Abdominal pain - hepatic steatosis as per US Smoker -counseling done DM - low sliding scale HTN - cont meds Chronic cough-no new productive sputum, no fevers in SNU History of CVA with left hemiplegia - stable Schizoaffective disorder - on depakote, stable History of decubitus ulcer - wound care recommendations greatly appreicated Seizure, last seizure as per his account was this month, twitching of his neck- on seizure medications Mild hyperkalemia resolved now Hypomagnesemia - replaced Brief Hospital Course Allergies Allergies Coded Allergies Type Severity Reaction Last Updated Verified egg Allergy Intermediate Diarrhea 09/27/18 Yes Vital Signs Vital Signs Date Time Temp Pulse Resp B/P (MAP) Pulse Ox O2 Delivery O2 Flow Rate FiO2 01/13/19 19:00 99.2 56 17 131/73 (92) 98 Room Air 99.2 01/12/19 15:00 2.0 Lab Results Laboratory Tests Test 01/12/19 07:24 01/12/19 12:21 01/12/19 16:57 01/12/19 20:44 Glucose (Fingerstick) 80 mg/dL (70-99) 81 mg/dL (70-99) 112 mg/dL (70-99) 126 mg/dL (70-99) Test 01/13/19 07:39 01/13/19 11:51 01/13/19 16:29 01/13/19 20:43 Glucose (Fingerstick) 116 mg/dL (70-99) 192 mg/dL (70-99) 158 mg/dL (70-99) 190 mg/dL (70-99) Laboratory Tests Test 01/13/19 07:39 01/13/19 11:51 01/13/19 16:29 01/13/19 20:43 Glucose (Fingerstick) 116 mg/dL (70-99) 192 mg/dL (70-99) 158 mg/dL (70-99) 190 mg/dL (70-99) Brief Hospital Course Mr. Orozco is a 57 year old [facility] patient w/ PMHx Smoker, DM, HTN, CVA, Seizure disorder, anxiety, schizophrenia, obstructive hydrocephalus s/p bilateral ELECTRICIAN SOUND shunt who arrived to ED with altered mental status per SNF. Patient has a decreased level of awareness and lower mental functioning at baseline however this is become worse over the past 10 days or so at the care facility where he resides. He was recently diagnosed with urinary tract infection, apparently, was placed on Cipro and was initially improving however he has gotten worse over the past several days. He was also noted to be hypokalemic and received IV fluids with potassium without any improvement in his mental status. In ED K was noted at 5.2. Mag was low at 1.7. Urine was bland. CT head shows bilateral lateral ventricles with increase in hydrocephalus. INR was 1.4. Otherwise labs WNL. Depakote level pending. He is mostly confused with me, unable to get any review of systems, but does have some RUQ tenderness with exam that he confirms with questioning. He was admitted for evaluation by neurology and neurosurgery, no changes to his medications were deemed appropirate. From the wound stand poitn of view he seems to be at baseline and constant reposition and wound care will have to continue. Off loading bed is recommended as well given his status. No acute evnets reported his urianalysis was negative and his cultures were negative, he was deemed appropriate for discharge after podiatry evaluation of his heel wounds and imaging studies failed to reveal bone involvement. Patient will return to SNF in hemodynamically stable condition Physical exam General appearance is in mild chronic distress. HEENT: Normocephalic and nontraumatic. Eyes, nose, ears, and throat are unremarkable. Neck is supple. No lymphadenopathy. No bruits are heard over the carotid artery. No crepitus. Cardiovascular: S1, S2, regular rate and rhythm. Pulmonary: Clear to auscultation bilaterally. Abdomen: Bowel sounds are positive. Abdomen is soft, nontender, and nondistend Greater than 35 minutes spent in the diacharge process of the patienet in coordiantion of care and arrangements for a safe transfer Discharge Information Condition at Discharge: Improved Follow Up: Weeks Disposition/Orders: D/C to Another Facility Scheduled Acetaminophen (Tylenol) 325 Mg Tablet, 1-2 TAB PO QID for fever or mild pain, # 60 Ref 2 (Reported) Entered as Reported by: DONNA MARTINEZ on 09/26/18 1730 Last Action: Reviewed on 01/11/19156 by OLIVE ANDREWS RN Ascorbic Acid (Ascorbic Acid) 500 Mg Tablet, 500 MG PO BID, (Reported) Entered as Reported by: Delores Lee on 12/14/14 1430 Last Action: Reviewed on 01/11/19156 by OLIVE ANDREWS RN Docusate Calcium (Docusate Calcium) 240 Mg Capsule, 240 MG PO DAILY for constipation, (Reported) Entered as Reported by: OLIVE ANDREWS RN on 01/11/19303 Last Action: New Order on 01/11/19303 by OLIVE ANDREWS RN Escitalopram Oxalate (Lexapro) 10 Mg Tablet, 10 MG PO DAILY for ANTI-DEPRESSANT , Ref 0 (Reported) Entered as Reported by: ANAM OMALLEY on 12/08/14 0540 Last Action: Reviewed on 01/11/19156 by OLIVE ANDREWS RN Gabapentin (Neurontin ) 100 Mg Capsule, 100 MG PO TID for neuropathy, Ref 0 ( Reported) Entered as Reported by: DONNA MARTINEZ on 09/26/181729 Last Action: Reviewed on 01/11/19156 by OLIVE ANDREWS RN Ketoconazole (Ketoconazole) 120 Ml Shampoo, 1 EUSEBIO TP TWICE WEEKLY for dandruff, #120 Ref 3 (Reported) Entered as Reported by: OLIVE ANDREWS RN on 01/11/19303 Last Action: New Order on 01/11/19303 by OLIVE ANDREWS RN Lactobacillus Rhamnosus Gg (Culturelle) 1 Each Cap.sprink, 1 CAP PO BID for pneumonia for 30 Days, #60 Prescribed by: ABIOLA FONSECA MD on 10/02/18 0835 Metformin Hcl (Metformin Hcl) 1,000 Mg Tablet, 1,000 MG PO BIDWMEALS for DM, ( Reported) Entered as Reported by: DONNA MARTINEZ on 09/26/181729 Last Action: Reviewed on 01/11/19156 by OLIVE ANDREWS RN Multivitamin (Multi Vitamin Daily) 1 Each Tablet, 1 EACH PO DAILY, (Reported) Entered as Reported by: Delores Lee on 12/14/14 1430 Last Action: Reviewed on 01/11/19156 by OLIVE ANDREWS RN Omeprazole (Omeprazole) 40 Mg Capsule.dr, 1 CAP PO DAILY for Esophageal reflux , #30 Ref 3 (Reported) Entered as Reported by: DONNA MARTINEZ on 09/26/181729 Last Action: Reviewed on 01/11/19156 by OLIVE ANDREWS RN Oxybutynin Chloride (Ditropan Xl) 5 Mg Tab.er.24, 1 TAB PO DAILY, #30 Ref 5 ( Reported) Entered as Reported by: ANAM OMALLEY on 12/08/14 0540 Last Action: Reviewed on 01/11/19156 by OLIVE ANDREWS RN Risperidone (Risperdal) 1 Mg Tablet, 5 MG PO BID for schizoeffective disorder, ( Reported) Entered as Reported by: DONNA MARTINEZ on 09/26/181734 Last Action: Reviewed on 01/11/19156 by OLIVE ANDREWS RN Valproate Sodium (Depakene) 250 Mg/5 Ml Solution, 20 ML PO QHS for schizoeffective disorder, (Reported) Entered as Reported by: DONNA MARTINEZ on 09/26/181729 Last Action: Reviewed on 01/11/19156 by OLIVE ANDREWS RN Valproic Acid (As Sodium Salt) (Valproic Acid) 250 Mg/5 Ml Solution, 15 ML FT DAILY for schizoeffective disorder, (Reported) Entered as Reported by: DONNA MARTINEZ on 09/26/181729 Last Action: Reviewed on 01/11/19156 by OLIVE ANDREWS RN Scheduled PRN Clonazepam (Clonazepam) 0.5 Mg Tablet, 1 MG PO PRN BID PRN for ANXIETY / AGITATION for 7 Days, #14 Prescribed by: ABIOLA FONSECA MD on 10/02/18834 Last Action: Reviewed on 01/11/19156 by OLIVE ANDREWS RN Ibuprofen (Ibuprofen) 400 Mg Tablet, 400 MG PO PRN Q6HRS PRN for INFLAMMATION, ( Reported) Entered as Reported by: OLIVE ANDREWS RN on 01/11/19303 Last Action: New Order on 01/11/19303 by OLIVE ANDREWS RN Magnesium Hydroxide (Milk Of Magnesia) 400 Mg/5 Ml Oral.susp, 30 ML PO PRN DAILY PRN for CONSTIPATION, (Reported) Entered as Reported by: ANAM OMALLEY on 12/08/14 0540 Last Action: Reviewed on 01/11/19156 by OLIVE ANDREWS RN Tramadol Hcl (Tramadol Hcl) 50 Mg Tablet, 1 TAB PO PRN TID PRN for PAIN for 6 Days, #18 Ref 0 Prescribed by: ABIOLA FONSECA MD on 10/02/18834 Last Action: Reviewed on 01/11/19156 by OLIVE ANDREWS RN Discontinued Medications Amoxicillin/Potassium Clav (Amox Tr-K Clv 875-125 Mg Tab) 1 Each Tablet, 1 TAB PO BID for Pneumonia for 5 Days, #10 Prescribed by: ABIOLA FONSECA MD on 10/02/18834 Ciprofloxacin Hcl (Cipro) 250 Mg Tablet, 1 TAB PO BID for UTI, #10 (Reported) Entered as Reported by: OLIVE ANDREWS RN on 01/11/19303 Last Action: New Order on 01/11/19303 by OLIVE ANDREWS RN Docusate Sodium (Colace) 100 Mg Capsule, 1 CAP PO DAILY for CONSTIPATION, #30 ( Reported) Entered as Reported by: ANAM OMALLEY on 12/08/14 0540 Last Action: Discontinued on 01/11/19156 by CHRISS JJ HECTOR M MD Jan 13, 2019 21:19
[2019-01-13 23:00] VITALS: BP 124/68
[2019-01-14 03:00] VITALS: BP 120/70
[2019-01-14] MEDS: HEPARIN for SUB-Q USE 5,000 UNIT/ML VIAL. SQ SCH (06:07)
[2019-01-14 07:49] VITALS: BP 123/71
[2019-01-14] MEDS: INSULIN LISPRO 300 UNITS/3 ML INSULN.PEN. SQ SCH (08:00)
--- NOTE | 2019-01-14 08:44 | NUR ---
XI following pt. XI phoned and faxed orders to [facility]. XI arranged transport via [facility] at 1100. XI left a voice mail to Nahomi at facility about dc plan. Spoke with Alexis at facility and informed her pt is discharging back today. She reported she will notify [facility]. RN notified. packet on chart.
--- NOTE | 2019-01-14 09:05 | NUR ---
XI following. Spoke with Kathy at [facility] who reported pt does not need EMS transport. Kathy also spoke with pt's RN, Cat and reported she will notify RN when they have a time to excelsior picker pt. XI cancelled EMS transport.
--- NOTE | 2019-01-14 12:46 | NUR ---
Discharge Note: RAIN BENEDICT Discharge instructions and discharge home medications reviewed with Patient and a copy given. All questions have been answered and understanding verbalized. Patient discharged to [facility] with facility staff via wheelchair.
== END 2019-01-14 13:12 | DRG 70 ==
LOC: ER 14:51 → 5 NORTH 18:19
PROVIDERS: ADMIT Internal Medicine; ATTEND Internal Medicine
DX: G93.41 Metabolic encephalopathy (principal); E43 Unspecified severe protein-calorie malnutrition; G91.9 Hydrocephalus, unspecified; N39.0 Urinary tract infection, site not specified; I69.354 Hemiplegia and hemiparesis following cerebral infarction affecting left non-dominant side; E87.5 Hyperkalemia; E83.42 Hypomagnesemia; G62.9 Polyneuropathy, unspecified; L89.519 Pressure ulcer of right ankle, unspecified stage; L89.620 Pressure ulcer of left heel, unstageable; G80.9 Cerebral palsy, unspecified; G40.909 Epilepsy, unspecified, not intractable, without status epilepticus; K21.9 Gastro-esophageal reflux disease without esophagitis; F25.9 Schizoaffective disorder, unspecified; M19.90 Unspecified osteoarthritis, unspecified site; F41.9 Anxiety disorder, unspecified; E87.6 Hypokalemia; I10 Essential (primary) hypertension; E11.51 Type 2 diabetes mellitus with diabetic peripheral angiopathy without gangrene; F17.210 Nicotine dependence, cigarettes, uncomplicated; K76.0 Fatty (change of) liver, not elsewhere classified; F03.90 Unspecified dementia, unspecified severity, without behavioral disturbance, psychotic disturbance, mood disturbance, and anxiety; J01.00 Acute maxillary sinusitis, unspecified; Z98.2 Presence of cerebrospinal fluid drainage device; Z79.899 Other long term (current) drug therapy
CPT/HCPCS: 36415; 70250; 70450; 71045; 71046; 73630; 74018; 76705; 80053; 80164; 81001; 82140; 82962; 83735; 83880; 84443; 84484; 85025; 85610; 87040; 87641; 93005; 95816; 96360; J1644; J1815; J3475; J7030; 92526; 92610; 99285-25

== ENCOUNTER 2019-07-20 08:31 | Emergency (ER) | payer MEDICARE, MEDICAID ==
[~2019-07-20] VITALS: Ht 170.2 cm; Wt 73.9 kg
[~2019-07-20 08:31] MED LIST changes: +CIPR250T30 PO; +CLON-77 PO; -CLON0.5T11 PO; +DOCU240C13 PO; +KETO120S2 TP; +POTA20LI2 PO; -POTA20LI27 PO
[2019-07-20] MEDS ORDERED: HYDROcodone/APAP 5/325MG 1 TAB TABLET PO ONE (09:00)
[2019-07-20 09:32] LABS: BASO % 1 % (0-3); EOS # 0.2 x10^3/uL (0.0-0.7); EOS % 2 % (0-3); HEMATOCRIT 37.9 % (39.0-53.0); HEMOGLOBIN 12.6 g/dL (13.0-17.5); LYMPH # 2.5 x10^3/uL (1.0-4.8); LYMPH % 32 % (24-48); MEAN CORPUSCULAR HEMOGLOBIN 31 pg (25-35); MEAN CORPUSCULAR HGB CONC 33 g/dL (31-37); MEAN CORPUSCULAR VOLUME 93 fL (79-100); MONO # 0.8 x10^3/uL (0.0-1.1); MONO % 10 % (0-9); NEUT # 4.3 x10^3/uL (1.8-7.7); NEUT % 55 % (31-73); PLATELET COUNT 279 x10^3/uL (140-400); RED BLOOD COUNT 4.08 x10^6/uL (4.30-5.70); RED CELL DISTRIBUTION WIDTH 15.4 % (11.5-14.5); WHITE BLOOD COUNT 7.7 x10^3/uL (4.0-11.0)
[2019-07-20 09:42] LABS: CREATININE 0.6 mg/dL (0.7-1.3); GFR 139.4; POTASSIUM 3.3 mmol/L (3.5-5.1)
[2019-07-20 09:46] LABS: ALBUMIN 2.2 g/dL (3.4-5.0); ALBUMIN/GLOBULIN RATIO 0.6 (1.0-1.7); TOTAL BILIRUBIN 0.2 mg/dL (0.2-1.0); TOTAL PROTEIN 6.2 g/dL (6.4-8.2)
--- NOTE | 2019-07-20 10:06 | RAD ---
Ultrasound venous Doppler INDICATION:Bilateral leg pain for one month. TECHNIQUE: Grayscale, color Doppler and spectral waveform ultrasound images of the bilateral lower extremities deep veins obtained. COMPARISON: None FINDINGS: The interrogated deep veins are compressible and demonstrate evidence of blood flow with normal respiratory variation and response to augmentation. IMPRESSION: No sonographic evidence of acute DVT of the bilateral lower extremity deep veins. Electronically signed by: Willie Martinez DO (07/20/2019 10:03 AM) [id number]
[2019-07-20] MEDS ORDERED: POTASSIUM CHLORIDE 20 MEQ TABLET.ER. PO ONE (10:15)
--- NOTE | 2019-07-20 10:16 | PHYS DOC ---
Past Medical History Past Medical History: Anxiety, Arthritis, CVA, GERD, Seizure, Schizophrenia, UTI, Other Additional Past Medical Histor: L SIDE HEMIPLEGIA,FALLS,candidal stomatitis,hydrocephalus Past Surgical History: Cholecystectomy, Other Additional Past Surgical Histo: PEG TUBE PLACEMENT, LOCKSTITCH POCKET SETTER shunt Alcohol Use: None Drug Use: None Adult General Chief Complaint Chief Complaint: LOWER EXTREMITY EDEMA HPI HPI Patient is a 58 year old male patient with history of CVA and left-sided weakness who presents with feeling of bilateral lower extremity edema. Patient states he had CVA and left upper and lower extremity weakness for the last 8 years and was admitted to rehabilitation about 1 month ago with Wound condition and since then has had bilateral lower extremity edema that gradually getting worse. Patient complaining of constant pain in bilateral legs and rated his pain 10 over 10. Patient denies shortness of breath, chest pain, nausea and vomiting, new focal neuro deficit. Review of Systems Review of Systems Constitutional: Denies fever or chills [] Eyes: Denies change in visual acuity, redness, or eye pain [] HENT: Denies nasal congestion or sore throat [] Respiratory: Denies cough or shortness of breath [] Cardiovascular: No additional information not addressed in HPI [] GI: Denies abdominal pain, nausea, vomiting, bloody stools or diarrhea [] : Denies dysuria or hematuria [] Musculoskeletal: Denies back pain, reports joint pain [] Integument: Denies rash or skin lesions [] Neurologic: Denies headache Endocrine: Denies polyuria or polydipsia [] All other systems were reviewed and found to be within normal limits, except as documented in this note. Current Medications Current Medications Current Medications Medications (Trade) Dose Ordered Sig/Quinn Start Time Stop Time Status Last Admin Dose Admin Acetaminophen/ Hydrocodone Bitart (Lortab 5/325) 1 tab 1X ONCE 07/20/19 09:00 07/20/19 09:01 DC 07/20/19 09:08 1 TAB Potassium Chloride (Klor-Con) 40 meq 1X ONCE 07/20/19 10:15 07/20/19 10:20 DC 07/20/19 10:36 40 MEQ Allergies Allergies Allergies Coded Allergies Type Severity Reaction Last Updated Verified egg Allergy Intermediate Diarrhea 09/27/18 Yes Physical Exam Physical Exam Constitutional: Well nourished, mild distress, non-toxic appearance, slurred speech. [] HENT: Normocephalic, atraumatic. Left facial droop. Eyes: PERRLA, EOMI, conjunctiva normal, no discharge. [] Neck: Normal range of motion, no tenderness, supple, no stridor. [] Cardiovascular:Heart rate regular rhythm, no murmur [] Lungs & Thorax: Bilateral breath sounds clear to auscultation [] Abdomen: Bowel sounds normal, soft, no tenderness, no masses, no pulsatile masses. [] Skin: Warm, dry, no erythema, no rash. [] Back: No tenderness, no CVA tenderness. [] Extremities: Bilateral lower extremity 3+ edema without erythema or tenderness, bilateral dorsalis pedis pulse was detected by Doppler Neurologic: Alert and oriented X 3, facial droop, slurred speech and left upper and lower extremity weakness related to CVA 8 years ago Psychologic: Affect normal, mood normal. [] Current Patient Data Vital Signs Vital Signs Date Time Temp Pulse Resp B/P (MAP) Pulse Ox O2 Delivery O2 Flow Rate FiO2 07/20/19 09:08 18 94 Room Air 07/20/19 08:42 98.4 73 120/75 (90) 98.4 Lab Values Laboratory Tests Test 07/20/19 09:21 White Blood Count 7.7 x10^3/uL (4.0-11.0) Red Blood Count 4.08 x10^6/uL (4.30-5.70) L Hemoglobin 12.6 g/dL (13.0-17.5) L Hematocrit 37.9 % (39.0-53.0) L Mean Corpuscular Volume 93 fL (79-100) Mean Corpuscular Hemoglobin 31 pg (25-35) Mean Corpuscular Hemoglobin Concent 33 g/dL (31-37) Red Cell Distribution Width 15.4 % (11.5-14.5) H Platelet Count 279 x10^3/uL (140-400) Neutrophils (%) (Auto) 55 % (31-73) Lymphocytes (%) (Auto) 32 % (24-48) Monocytes (%) (Auto) 10 % (0-9) H Eosinophils (%) (Auto) 2 % (0-3) Basophils (%) (Auto) 1 % (0-3) Neutrophils # (Auto) 4.3 x10^3/uL (1.8-7.7) Lymphocytes # (Auto) 2.5 x10^3/uL (1.0-4.8) Monocytes # (Auto) 0.8 x10^3/uL (0.0-1.1) Eosinophils # (Auto) 0.2 x10^3/uL (0.0-0.7) Basophils # (Auto) 0.0 x10^3/uL (0.0-0.2) Sodium Level 141 mmol/L (136-145) Potassium Level 3.3 mmol/L (3.5-5.1) L Chloride Level 104 mmol/L (98-107) Carbon Dioxide Level 29 mmol/L (21-32) Anion Gap 8 (6-14) Blood Urea Nitrogen 7 mg/dL (8-26) L Creatinine 0.6 mg/dL (0.7-1.3) L Estimated GFR (Cockcroft-Gault) 139.4 BUN/Creatinine Ratio 12 (6-20) Glucose Level 90 mg/dL (70-99) Calcium Level 9.0 mg/dL (8.5-10.1) Total Bilirubin 0.2 mg/dL (0.2-1.0) Aspartate Amino Transferase (AST) 12 U/L (15-37) L Alanine Aminotransferase (ALT) 7 U/L (16-63) L Alkaline Phosphatase 60 U/L (46-116) WB-Ifh-N-Type Natriuretic Peptide 143 pg/mL (0-124) H Total Protein 6.2 g/dL (6.4-8.2) L Albumin 2.2 g/dL (3.4-5.0) L Albumin/Globulin Ratio 0.6 (1.0-1.7) L Laboratory Tests 07/20/19 09:21 Laboratory Tests 07/20/19 09:21 EKG EKG [] Radiology/Procedures Radiology/Procedures [][facility] [address] [place] [address] IMAGING REPORT Signed PATIENT: RAIN BENEDICT ACCOUNT: [id number] : 1960 LOCATION: ER AGE: 58 SEX: M EXAM STATUS: REG ER ORD. PHYSICIAN: JULIO CESAR MIRANDA MD REASON: bilateral lower extremity pain for 1 month PROCEDURE: VENOUS LOWER EXT BILATERAL Ultrasound venous Doppler INDICATION:Bilateral leg pain for one month. TECHNIQUE: Grayscale, color Doppler and spectral waveform ultrasound images of the bilateral lower extremities deep veins obtained. COMPARISON: None FINDINGS: The interrogated deep veins are compressible and demonstrate evidence of blood flow with normal respiratory variation and response to augmentation. IMPRESSION: No sonographic evidence of acute DVT of the bilateral lower extremity deep veins. Electronically signed by: Willie Martinez DO (07/20/2019 10:03 AM) [facility] DICTATED and SIGNED BY: WILLIE MARTINEZ DO DATE: 07/20/19 1003 Course & Med Decision Making Course & Med Decision Making Pertinent Labs and Imaging studies reviewed. (See chart for details) Evaluation of patient in ER showed 58-year-old male patient with history of chronic CVA and wheelchair-bound condition and resident of rehabilitation with complaining of lower extremity edema and pain for one month. Patient had detectable pulse by Doppler and unremarkable ultrasound for venous Doppler body. Labs showed mild hypokalemia without CHF or severe anemia. Patient had hypoalbuminemia. Plan discharge patient rehabilitation with follow-up with his primary care physician regarding chronic pain management and instruction to elevate his leg and increase protein intake. Dragon Disclaimer Dragon Disclaimer This electronic medical record was generated, in whole or in part, using a voice recognition dictation system. Departure Departure Impression: Primary Impression: Pedal edema Additional Impressions: History of CVA (cerebrovascular accident) Hypokalemia Anemia Hypoalbuminemia Disposition: HOME, SELF-CARE (To rehabilitation at 1014) Condition: IMPROVED Referrals: MARLENI MENDEZ MD (PCP) Patient Instructions: Hypokalemia, Peripheral Edema Additional Instructions: Elevate lower extremities Follow-up with your primary care physician in 1-2 days for pain medication for chronic pain Return to ER if not getting better Take high protein food Problem Qualifiers Additional Impressions: Anemia Anemia type: unspecified type Qualified Codes: D64.9 - Anemia, unspecified JULIO CESAR MIRANDA MD Jul 20, 2019 10:16
[2019-07-20 10:45] VITALS: BP 125/66
== END 2019-07-20 11:00 | disposition home or self-care (01) ==
LOC: ER 08:31
DX: R60.0 Localized edema (principal); E87.6 Hypokalemia; D64.9 Anemia, unspecified; E88.09 Other disorders of plasma-protein metabolism, not elsewhere classified; R47.81 Slurred speech; R29.810 Facial weakness; R53.1 Weakness; G89.29 Other chronic pain; Z86.73 Personal history of transient ischemic attack (TIA), and cerebral infarction without residual deficits; F41.9 Anxiety disorder, unspecified; M19.90 Unspecified osteoarthritis, unspecified site; K21.9 Gastro-esophageal reflux disease without esophagitis; Z90.49 Acquired absence of other specified parts of digestive tract; Z91.012 Allergy to eggs
CPT/HCPCS: 36415; 80053; 83880; 85025; 93970; 99285-25